=== PATIENT | female | born 1955 | race Caucasian/White ===

== ENCOUNTER 2019-10-09 10:43 | Outpatient (CLI) | payer OTHER ==
--- NOTE | 2019-10-09 11:14 | RAD ---
Abdomen 2 views HISTORY: Abdominal pain. FINDINGS: Large amount of hyperdense stool throughout the colon and rectum. No differential air-fluid levels or evidence of free subdiaphragmatic gas. Phleboliths project over the pelvis. There are mild degenerative changes of the lumbar spine and hips. IMPRESSION: Severe constipation.
== END 2019-10-09 10:44 | disposition home or self-care (01) ==
LOC: BICRAD 10:43
PROVIDERS: ATTEND Physician Assistant Medical
DX: K59.09 Other constipation (principal)
CPT/HCPCS: 74019

== ENCOUNTER 2021-04-23 08:32 | Inpatient (IN) | payer OTHER ==
[2021-04-23 09:00] LABS: #Lymphocytes 0.8 thou/uL (1.20-3.40); #Monocytes 1.5 thou/uL (0.11-0.59); #Neutrophils 12.3 thou/uL (1.40-6.50); %Basophils 0.2 % (0.0-1.0); %Eosinophils 0.3 % (0.0-10.0); %Lymphocytes 5.4 % (21.0-51.0); %Monocytes 10.4 % (0.0-10.0); %Neutrophils 83.7 % (42.0-75.0); Hemoglobin 9.8 g/dL (12.0-16.0); Mean Corpuscular HGB CONC 33.5 g/dL (32.0-36.0); Mean Corpuscular Hemoglobin 31.5 pg (27.0-31.0); Mean Corpuscular Volume 93.9 fL (78.0-98.0); Mean Platelet Volume 7.5 fL (7.4-10.4); Platelet Count 189 thou/uL (130-400); RBC Distribution Width 13.1 % (11.5-14.5); Red Blood Cell (RBC) Count 3.11 mill/uL (4.20-5.40); White Blood Cell (WBC) Count 14.7 thou/uL (4.8-10.8)
[2021-04-23] MEDS ORDERED: Cefepime 2 GM VIAL ONE (09:00)
[2021-04-23] MEDS ORDERED: cloNIDine 0.1 MG TAB ONE (09:00)
[2021-04-23 09:20] LABS: Bacteria/HPF None Seen HPF (None Seen); Bilirubin Negative (Negative); Blood, Urine 1+ (Negative); Clarity Clear (Clear); Glucose, Urine (Dipstick) Normal (Negative); Ketone, Urine Trace mg/dL (Negative); Leukocyte Negative Leu/uL (Negative); Nitrite Negative (Negative); Protein, Urine (Dipstick) 50 mg/dL (Neg-Trace); Specific Gravity, Urine 1.019 (1.002-1.036); Squamous Epithelial 0-3 HPF (0-3); Urobilinogen Normal mg/dL (Less than 2); WBC/HPF 0-3 HPF (0-3)
[2021-04-23 09:21] LABS: ALT (SGPT) 16 U/L (8-55); AST (SGOT) 20 U/L (5-34); Albumin 2.9 g/dL (3.4-4.8); Alkaline Phosphatase 92 U/L (40-110); Anion Gap 11 mmol/L (10-20); BUN (Urea Nitrogen) 16 mg/dL (9.8-20.1); Bilirubin, Total 0.7 mg/dL (0.2-1.2); Calc. Creatinine Clearance 0 mL/min (70-130); Calcium 8.3 mg/dL (7.8-10.44); Carbon Dioxide 15 mmol/L (23-31); Chloride 113 mmol/L (98-107); Globulin 2.7 g/dL (2.4-3.5); Glucose 85 mg/dL (80-115); Potassium 3.2 mmol/L (3.5-5.1); Protein, Total 5.6 g/dL (5.8-8.1); Sodium 136 mmol/L (136-145)
[2021-04-23] MEDS ORDERED: Ondansetron ODT 4 MG TAB SL PRN (10:00)
[2021-04-23] MEDS ORDERED: Acetaminophen 325 MG TAB PO PRN (10:00)
[2021-04-23] MEDS ORDERED: Ondansetron PF 4 MG/2 ML Vial IVP PRN (10:00)
[2021-04-23] MEDS ORDERED: Vancomycin 1 GM/200 ML BAG ONE (10:01)
[2021-04-23 13:34] LABS: SARS-CoV-2 NAA Rapid Test DETECTED (NotDetected)
[2021-04-23] MEDS ORDERED: NS 0.9% w/ 40 MEQ KCL 1,000 ML IV SCH (16:00)
[2021-04-23] MEDS ORDERED: Prevnar 13-Val Conj/PF 0.5 ML SYRINGE IM ONE (16:30)
[2021-04-23] MEDS: Acetaminophen 650 MG Suppository PR PRN (20:00)
[2021-04-23] MEDS ORDERED: Sodium Chloride 0.9% 500 ML IV SCH (20:00)
[2021-04-23] MEDS: Cefepime 2 GM in Sodium Chloride 0.9% 100 ML IVPB SCH (20:57)
[2021-04-23] MEDS: Sodium Chloride 0.9% 1,000 ML IV SCH (21:34)
[2021-04-23] MEDS ORDERED: Sodium Chloride 0.9% 1,000 ML IV SCH (22:00)
[2021-04-24] MEDS: DOPamine 400 MG/D5W 250 ML 250 ML IVPB SCH ×2 (00:41→20:32)
[2021-04-24] MEDS ORDERED: Sodium Chloride 0.9% 1,000 ML IV SCH (02:00)
[2021-04-24 04:11] LABS: #Eosinphils 0.1 thou/uL (0.0-0.7); #Lymphocytes 0.8 thou/uL (1.20-3.40); #Monocytes 0.9 thou/uL (0.11-0.59); #Neutrophils 11.6 thou/uL (1.40-6.50); %Basophils 0.3 % (0.0-1.0); %Eosinophils 0.9 % (0.0-10.0); %Lymphocytes 6.1 % (21.0-51.0); %Monocytes 6.3 % (0.0-10.0); %Neutrophils 86.4 % (42.0-75.0); Hemoglobin 9.2 g/dL (12.0-16.0); Mean Corpuscular HGB CONC 33.3 g/dL (32.0-36.0); Mean Corpuscular Hemoglobin 31.8 pg (27.0-31.0); Mean Corpuscular Volume 95.6 fL (78.0-98.0); Mean Platelet Volume 7.4 fL (7.4-10.4); Platelet Count 149 thou/uL (130-400); RBC Distribution Width 13.1 % (11.5-14.5); Red Blood Cell (RBC) Count 2.88 mill/uL (4.20-5.40); White Blood Cell (WBC) Count 13.5 thou/uL (4.8-10.8)
[2021-04-24 04:28] LABS: Anion Gap 12 mmol/L (10-20); BUN (Urea Nitrogen) 14 mg/dL (9.8-20.1); Calc. Creatinine Clearance 69 mL/min (70-130); Calcium 7.7 mg/dL (7.8-10.44); Carbon Dioxide 10 mmol/L (23-31); Chloride 120 mmol/L (98-107); Glucose 83 mg/dL (80-115); Potassium 3.5 mmol/L (3.5-5.1); Sodium 138 mmol/L (136-145)
[2021-04-24] MEDS: Enoxaparin Sodium 40 MG/0.4 ML SYRINGE SC SCH (09:37)
[2021-04-24] MEDS: Cefepime 2 GM in Sodium Chloride 0.9% 100 ML IVPB SCH ×2 (09:37→20:39)
[2021-04-24] MEDS: Sodium Chloride 0.9% 1,000 ML IV SCH ×2 (09:37→21:53)
[2021-04-24] MEDS: Vancomycin 1 GM in Premix Bag 1 BAG IVPB SCH (09:40)
[2021-04-24] MEDS ORDERED: Potassium Chloride 40 MEQ in Sodium Chloride 0.9% 250 ML 250 ML IVPB SCH (11:45)
[2021-04-24] MEDS: Ondansetron PF 4 MG/2 ML Vial IVP PRN (13:51)
[2021-04-25 05:09] LABS: #Eosinphils 0.3 thou/uL (0.0-0.7); #Lymphocytes 0.6 thou/uL (1.20-3.40); #Monocytes 0.6 thou/uL (0.11-0.59); %Basophils 0.3 % (0.0-1.0); %Eosinophils 3.3 % (0.0-10.0); %Lymphocytes 6.3 % (21.0-51.0); %Monocytes 6.5 % (0.0-10.0); %Neutrophils 83.7 % (42.0-75.0); Hemoglobin 9.3 g/dL (12.0-16.0); Mean Corpuscular HGB CONC 32.6 g/dL (32.0-36.0); Mean Corpuscular Hemoglobin 30.8 pg (27.0-31.0); Mean Corpuscular Volume 94.4 fL (78.0-98.0); Mean Platelet Volume 7.4 fL (7.4-10.4); Platelet Count 170 thou/uL (130-400); RBC Distribution Width 13.1 % (11.5-14.5); White Blood Cell (WBC) Count 9.6 thou/uL (4.8-10.8)
[2021-04-25 05:34] LABS: Anion Gap 11 mmol/L (10-20); BUN (Urea Nitrogen) 12 mg/dL (9.8-20.1); Calc. Creatinine Clearance 78 mL/min (70-130); Calcium 8.1 mg/dL (7.8-10.44); Carbon Dioxide 12 mmol/L (23-31); Chloride 114 mmol/L (98-107); Glucose 81 mg/dL (80-115); Potassium 3.3 mmol/L (3.5-5.1); Sodium 134 mmol/L (136-145)
[2021-04-25] MEDS: Sodium Chloride 0.9% 1,000 ML IV SCH (05:57)
[2021-04-25] MEDS: Enoxaparin Sodium 40 MG/0.4 ML SYRINGE SC SCH (09:15)
[2021-04-25] MEDS: Cefepime 2 GM in Sodium Chloride 0.9% 100 ML IVPB SCH ×2 (09:16→21:08)
[2021-04-25] MEDS: Vancomycin 1 GM in Premix Bag 1 BAG IVPB SCH (09:17)
[2021-04-25 10:11] LABS: Vancomycin, Trough 8.6 ug/mL
[2021-04-25] MEDS ORDERED: Artificial Tear Sol 15 ML BOT EA EYE PRN (10:56)
[2021-04-25] MEDS ORDERED: Potassium Chloride 40 MEQ in Sodium Chloride 0.9% 250 ML 250 ML IVPB SCH (11:45)
[2021-04-25] MEDS ORDERED: Potassium Chloride 40 MEQ in Premix Bag 1 BAG IVPB SCH (12:00)
[2021-04-25] MEDS: DOPamine 400 MG/D5W 250 ML 250 ML IVPB SCH (17:15)
[2021-04-25] MEDS: Vancomycin HCl 750 MG in Sodium Chloride 0.9% 250 ML 250 ML IVPB SCH (21:38)
[2021-04-26] MEDS: Sodium Chloride 0.9% 1,000 ML IV SCH ×2 (01:20→11:20)
[2021-04-26 04:44] LABS: Anion Gap 12 mmol/L (10-20); BUN (Urea Nitrogen) 11 mg/dL (9.8-20.1); Calc. Creatinine Clearance 86 mL/min (70-130); Carbon Dioxide 11 mmol/L (23-31); Chloride 113 mmol/L (98-107); Glucose 90 mg/dL (80-115); Potassium 4.4 mmol/L (3.5-5.1); Sodium 132 mmol/L (136-145)
[2021-04-26] MEDS ORDERED: Famotidine 20 MG TAB PO PRN (07:40)
[2021-04-26] MEDS ORDERED: Levothyroxine Sodium 88 MCG TAB PO SCH (07:45)
[2021-04-26] MEDS: Cefepime 2 GM in Sodium Chloride 0.9% 100 ML IVPB SCH ×2 (08:49→20:59)
[2021-04-26] MEDS: Dronabinol 2.5 MG CAP PO SCH ×2 (08:49→21:00)
[2021-04-26] MEDS: Enoxaparin Sodium 40 MG/0.4 ML SYRINGE SC SCH (08:49)
[2021-04-26] MEDS: Zinc Sulfate 220 MG CAP PO SCH (08:50)
[2021-04-26] MEDS: Vit A,C & E/Lutein/Minerals Tablet PO SCH ×2 (08:50→21:00)
[2021-04-26] MEDS ORDERED: Non-Formulary Item 1 EACH (Linaclotide [Linzess] 290 MCG Capsule) PO SCH (09:00)
[2021-04-26 09:51] LABS: #Eosinphils 0.3 thou/uL (0.0-0.7); #Lymphocytes 0.7 thou/uL (1.20-3.40); #Monocytes 0.7 thou/uL (0.11-0.59); #Neutrophils 5.6 thou/uL (1.40-6.50); %Basophils 0.6 % (0.0-1.0); %Eosinophils 4.4 % (0.0-10.0); %Lymphocytes 9.4 % (21.0-51.0); %Monocytes 9.2 % (0.0-10.0); %Neutrophils 76.4 % (42.0-75.0); Mean Corpuscular HGB CONC 33.2 g/dL (32.0-36.0); Mean Corpuscular Hemoglobin 31.3 pg (27.0-31.0); Mean Corpuscular Volume 94.1 fL (78.0-98.0); Platelet Count 174 thou/uL (130-400); White Blood Cell (WBC) Count 7.3 thou/uL (4.8-10.8)
[2021-04-26 10:30] LABS: Free T4 (Free Thyroxine) 0.92 ng/dL (0.70-1.48)
[2021-04-26] MEDS: Vancomycin HCl 750 MG in Sodium Chloride 0.9% 250 ML 250 ML IVPB SCH ×2 (11:18→23:16)
[2021-04-26] MEDS: DOPamine 400 MG/D5W 250 ML 250 ML IVPB SCH (14:30)
[2021-04-26 16:06] LABS: Strep pneumo Urine Ag NEGATIVE (NEGATIVE)
[2021-04-26 16:07] LABS: Legionella Urinary Ag Negative (Negative)
[2021-04-26] MEDS ORDERED: Lactated Ringer's 500 ML IV SCH (20:00)
[2021-04-26] MEDS: Lactated Ringer's 1,000 ML IV SCH (20:58)
[2021-04-26] MEDS: Mirtazapine 15 MG TAB PO SCH (21:00)
[2021-04-27 04:32] LABS: #Basophils 0.1 thou/uL (0.0-0.2); #Eosinphils 0.3 thou/uL (0.0-0.7); #Lymphocytes 0.8 thou/uL (1.20-3.40); #Monocytes 0.8 thou/uL (0.11-0.59); #Neutrophils 6.3 thou/uL (1.40-6.50); %Basophils 0.6 % (0.0-1.0); %Eosinophils 4.2 % (0.0-10.0); %Lymphocytes 9.1 % (21.0-51.0); %Monocytes 9.8 % (0.0-10.0); %Neutrophils 76.3 % (42.0-75.0); Hemoglobin 10.5 g/dL (12.0-16.0); Mean Corpuscular HGB CONC 33.6 g/dL (32.0-36.0); Mean Corpuscular Hemoglobin 31.5 pg (27.0-31.0); Mean Corpuscular Volume 93.6 fL (78.0-98.0); Mean Platelet Volume 6.9 fL (7.4-10.4); Platelet Count 182 thou/uL (130-400); RBC Distribution Width 13.1 % (11.5-14.5); Red Blood Cell (RBC) Count 3.32 mill/uL (4.20-5.40); White Blood Cell (WBC) Count 8.3 thou/uL (4.8-10.8)
[2021-04-27 04:53] LABS: Anion Gap 11 mmol/L (10-20); BUN (Urea Nitrogen) 9 mg/dL (9.8-20.1); Calc. Creatinine Clearance 86 mL/min (70-130); Calcium 8.1 mg/dL (7.8-10.44); Carbon Dioxide 14 mmol/L (23-31); Chloride 110 mmol/L (98-107); Glucose 97 mg/dL (80-115); Sodium 132 mmol/L (136-145)
[2021-04-27] MEDS: Levothyroxine Sodium 88 MCG TAB PO SCH (07:23)
[2021-04-27] MEDS ORDERED: Fludrocortisone Acetate 0.1 MG TAB PO SCH (09:00)
[2021-04-27 09:10] LABS: Vancomycin, Trough 23.7 ug/mL
[2021-04-27] MEDS ORDERED: Potassium Chloride 20 MEQ TAB PO SCH (10:00)
[2021-04-27] MEDS: Cefepime 2 GM in Sodium Chloride 0.9% 100 ML IVPB SCH ×2 (10:23→20:53)
[2021-04-27] MEDS: Vit A,C & E/Lutein/Minerals Tablet PO SCH (10:24)
[2021-04-27] MEDS: Vancomycin HCl 750 MG in Sodium Chloride 0.9% 250 ML 250 ML IVPB SCH ×2 (10:24→22:58)
[2021-04-27] MEDS: Enoxaparin Sodium 40 MG/0.4 ML SYRINGE SC SCH (10:24)
[2021-04-27] MEDS: Zinc Sulfate 220 MG CAP PO SCH (10:24)
[2021-04-27] MEDS: Dronabinol 2.5 MG CAP PO SCH ×3 (10:24→23:18)
[2021-04-27] MEDS: Lactated Ringer's 1,000 ML IV SCH (10:25)
[2021-04-27] MEDS ORDERED: Pancrelipase DR 12,000 1 CAP FS PRN (11:45)
[2021-04-27] MEDS ORDERED: Sodium Bicarbonate Tab 325 MG TAB PER TUBE PRN (11:45)
[2021-04-27] MEDS ORDERED: Sodium Chloride 0.9% (PF) 10 ML VIAL FS PRN (12:15)
[2021-04-27] MEDS ORDERED: DOPamine 400 MG/D5W 250 ML 250 ML IVPB SCH (12:30)
[2021-04-27] MEDS: Dextrose 5%-Lactated Ringers 1,000 ML IV SCH (14:30)
[2021-04-27] MEDS: Dexamethasone 4 mg/ml Vial SLOW IVP SCH ×2 (17:51→20:53)
[2021-04-27 18:43] LABS: CSF Source CSF; Clarity Clear (Clear); Tube # 4
[2021-04-27] MEDS ORDERED: Potassium Chloride 40 MEQ in Sodium Chloride 0.9% 250 ML 250 ML IVPB SCH (19:30)
[2021-04-27] MEDS: Mirtazapine 15 MG TAB PO SCH (23:18)
[2021-04-28] MEDS: Levothyroxine Sodium 88 MCG TAB PO SCH (01:15)
[2021-04-28] MEDS: Dexamethasone 4 mg/ml Vial SLOW IVP SCH ×6 (01:20→21:51)
[2021-04-28 05:05] LABS: #Lymphocytes 0.5 thou/uL (1.20-3.40); #Monocytes 0.1 thou/uL (0.11-0.59); #Neutrophils 7.1 thou/uL (1.40-6.50); %Eosinophils 0.5 % (0.0-10.0); %Lymphocytes 6.6 % (21.0-51.0); %Monocytes 1.3 % (0.0-10.0); %Neutrophils 91.6 % (42.0-75.0); Hemoglobin 9.9 g/dL (12.0-16.0); Mean Corpuscular HGB CONC 32.8 g/dL (32.0-36.0); Mean Corpuscular Hemoglobin 30.6 pg (27.0-31.0); Mean Corpuscular Volume 93.3 fL (78.0-98.0); Mean Platelet Volume 8.3 fL (7.4-10.4); Platelet Count 186 thou/uL (130-400); RBC Distribution Width 13.2 % (11.5-14.5); Red Blood Cell (RBC) Count 3.23 mill/uL (4.20-5.40); White Blood Cell (WBC) Count 7.8 thou/uL (4.8-10.8)
[2021-04-28 05:29] LABS: ALT (SGPT) 16 U/L (8-55); AST (SGOT) 14 U/L (5-34); Albumin 2.6 g/dL (3.4-4.8); Alkaline Phosphatase 101 U/L (40-110); Anion Gap 11 mmol/L (10-20); BUN (Urea Nitrogen) 13 mg/dL (9.8-20.1); Bilirubin, Total 0.4 mg/dL (0.2-1.2); Calc. Creatinine Clearance 76 mL/min (70-130); Calcium 8.3 mg/dL (7.8-10.44); Carbon Dioxide 13 mmol/L (23-31); Chloride 113 mmol/L (98-107); Globulin 2.9 g/dL (2.4-3.5); Glucose 228 mg/dL (80-115); Magnesium 1.9 mg/dL (1.6-2.6); Potassium 3.6 mmol/L (3.5-5.1); Protein, Total 5.5 g/dL (5.8-8.1); Sodium 133 mmol/L (136-145)
[2021-04-28] MEDS: Enoxaparin Sodium 40 MG/0.4 ML SYRINGE SC SCH (08:57)
[2021-04-28] MEDS: Pantoprazole 40 MG VIAL IVP SCH (08:57)
[2021-04-28] MEDS: Dronabinol 2.5 MG CAP PO SCH ×2 (08:58→21:51)
[2021-04-28] MEDS: Cefepime 2 GM in Sodium Chloride 0.9% 100 ML IVPB SCH ×2 (09:00→21:51)
[2021-04-28] MEDS: Vancomycin HCl 750 MG in Sodium Chloride 0.9% 250 ML 250 ML IVPB SCH (09:01)
[2021-04-28 09:41] LABS: Vancomycin, Trough 30.5 ug/mL
[2021-04-28] MEDS: Dextrose 5%-Lactated Ringers 1,000 ML IV SCH (12:03)
[2021-04-28 21:13] LABS: Vancomycin, Random 23.5 ug/mL (See Comment)
[2021-04-28] MEDS: Mirtazapine 15 MG TAB PO SCH (21:51)
[2021-04-28] MEDS ORDERED: Vancomycin HCl 500 MG in Sodium Chloride 0.9% 100 ML IVPB SCH (22:00)
[2021-04-29] MEDS: Dexamethasone 4 mg/ml Vial SLOW IVP SCH ×5 (02:11→16:55)
[2021-04-29] MEDS: Levothyroxine Sodium 88 MCG TAB PO SCH (04:53)
[2021-04-29 05:44] LABS: ALT (SGPT) 28 U/L (8-55); AST (SGOT) 32 U/L (5-34); Albumin 2.6 g/dL (3.4-4.8); Alkaline Phosphatase 98 U/L (40-110); Anion Gap 12 mmol/L (10-20); BUN (Urea Nitrogen) 21 mg/dL (9.8-20.1); Bilirubin, Total 0.2 mg/dL (0.2-1.2); Calc. Creatinine Clearance 77 mL/min (70-130); Calcium 8.8 mg/dL (7.8-10.44); Carbon Dioxide 12 mmol/L (23-31); Chloride 114 mmol/L (98-107); Globulin 2.8 g/dL (2.4-3.5); Glucose 131 mg/dL (80-115); Potassium 3.7 mmol/L (3.5-5.1); Protein, Total 5.4 g/dL (5.8-8.1); Sodium 134 mmol/L (136-145)
[2021-04-29] MEDS: Dronabinol 2.5 MG CAP PO SCH ×2 (09:37→21:20)
[2021-04-29] MEDS: Enoxaparin Sodium 40 MG/0.4 ML SYRINGE SC SCH (09:40)
[2021-04-29] MEDS: Cefepime 2 GM in Sodium Chloride 0.9% 100 ML IVPB SCH ×2 (09:40→21:20)
[2021-04-29] MEDS: Pantoprazole 40 MG VIAL IVP SCH (09:41)
[2021-04-29 11:46] LABS: Vancomycin, Random 18.4 ug/mL (See Comment)
[2021-04-29] MEDS: Vancomycin HCl 750 MG in Sodium Chloride 0.9% 250 ML 250 ML IVPB SCH (14:29)
[2021-04-29 19:23] LABS: SARS-CoV-2 NAA Rapid Test Not Detected (NotDetected)
[2021-04-29] MEDS: Mirtazapine 15 MG TAB PO SCH (21:20)
[2021-04-29 22:12] LABS: QuantiFERON-TB Gold Plus Negative (Negative)
[2021-04-30] MEDS: Levothyroxine Sodium 88 MCG TAB PO SCH (04:54)
[2021-04-30 07:26] LABS: ALT (SGPT) 73 U/L (8-55); AST (SGOT) 65 U/L (5-34); Albumin 2.5 g/dL (3.4-4.8); Alkaline Phosphatase 96 U/L (40-110); Anion Gap 9 mmol/L (10-20); BUN (Urea Nitrogen) 23 mg/dL (9.8-20.1); Bilirubin, Total 0.3 mg/dL (0.2-1.2); Calc. Creatinine Clearance 80 mL/min (70-130); Calcium 8.8 mg/dL (7.8-10.44); Carbon Dioxide 16 mmol/L (23-31); Chloride 114 mmol/L (98-107); Globulin 2.8 g/dL (2.4-3.5); Glucose 98 mg/dL (80-115); Potassium 3.8 mmol/L (3.5-5.1); Protein, Total 5.3 g/dL (5.8-8.1); Sodium 135 mmol/L (136-145)
[2021-04-30] MEDS: Cefepime 2 GM in Sodium Chloride 0.9% 100 ML IVPB SCH ×2 (08:25→21:57)
[2021-04-30] MEDS: Enoxaparin Sodium 40 MG/0.4 ML SYRINGE SC SCH (08:26)
[2021-04-30] MEDS: Pantoprazole 40 MG VIAL IVP SCH (08:27)
[2021-04-30] MEDS: Dronabinol 2.5 MG CAP PO SCH ×3 (10:44→22:10)
[2021-04-30] MEDS: Acetaminophen 650 MG Suppository PR PRN (11:53)
[2021-04-30] MEDS: Vancomycin HCl 750 MG in Sodium Chloride 0.9% 250 ML 250 ML IVPB SCH (13:04)
[2021-04-30 13:54] VITALS: BMI 24.7
[2021-04-30] MEDS: Mirtazapine 15 MG TAB PO SCH (21:57)
[2021-05-01 04:43] LABS: Hemoglobin 9.3 g/dL (12.0-16.0); Mean Corpuscular HGB CONC 33.9 g/dL (32.0-36.0); Mean Corpuscular Hemoglobin 31.4 pg (27.0-31.0); Mean Corpuscular Volume 92.8 fL (78.0-98.0); Mean Platelet Volume 7.8 fL (7.4-10.4); Platelet Count 204 thou/uL (130-400); RBC Distribution Width 13.6 % (11.5-14.5); Red Blood Cell (RBC) Count 2.95 mill/uL (4.20-5.40); White Blood Cell (WBC) Count 5.1 thou/uL (4.8-10.8)
[2021-05-01 05:00] LABS: ALT (SGPT) 83 U/L (8-55); AST (SGOT) 57 U/L (5-34); Albumin 2.5 g/dL (3.4-4.8); Alkaline Phosphatase 93 U/L (40-110); Anion Gap 8 mmol/L (10-20); BUN (Urea Nitrogen) 22 mg/dL (9.8-20.1); Bilirubin, Total 0.4 mg/dL (0.2-1.2); Calc. Creatinine Clearance 83 mL/min (70-130); Calcium 8.5 mg/dL (7.8-10.44); Carbon Dioxide 19 mmol/L (23-31); Chloride 113 mmol/L (98-107); Globulin 2.6 g/dL (2.4-3.5); Glucose 84 mg/dL (80-115); Potassium 3.5 mmol/L (3.5-5.1); Protein, Total 5.1 g/dL (5.8-8.1); Sodium 136 mmol/L (136-145)
[2021-05-01] MEDS: Levothyroxine Sodium 88 MCG TAB PO SCH (05:25)
[2021-05-01 06:39] LABS: Band 9 % (5-11); Eosinophils 1 % (0-10); Lymphocytes 30 % (21-51); MDiff Complete? YES; Monocytes 15 % (0-10); Myelocyte 5 % (0-0); Neutrophil 40 % (42-75)
[2021-05-01] MEDS ORDERED: Midazolam HCl 2 mg/2 ml Vial ONE (08:55)
[2021-05-01] MEDS ORDERED: Ketamine 50 MG/ML (10ML VIAL) ONE (08:55)
[2021-05-01] MEDS ORDERED: Ondansetron HCl/PF 4 MG/2 ML Vial IVP PRN (09:08)
[2021-05-01] MEDS ORDERED: Promethazine HCl 25 MG/ML VIAL IVPB PRN (09:08)
[2021-05-01] MEDS ORDERED: Promethazine HCl 25 MG/ML VIAL IM PRN (09:08)
[2021-05-01] MEDS: Pantoprazole 40 MG VIAL IVP SCH (10:02)
[2021-05-01] MEDS: Cefepime 2 GM in Sodium Chloride 0.9% 100 ML IVPB SCH (10:04)
[2021-05-01] MEDS: Dronabinol 2.5 MG CAP PO SCH ×2 (10:05→20:47)
[2021-05-01 12:37] LABS: Vancomycin, Trough 15.3 ug/mL
[2021-05-01] MEDS ORDERED: Vancomycin 1 GM in Premix Bag 1 BAG IVPB SCH (13:00)
[2021-05-01] MEDS: Acetaminophen 650 MG Suppository PR PRN (13:53)
[2021-05-01] MEDS ORDERED: Famotidine/PF 20 mg/2ml Vial ONE (14:36)
[2021-05-01] MEDS: Mirtazapine 15 MG TAB PO SCH (20:47)
[2021-05-02] MEDS: Levothyroxine Sodium 88 MCG TAB PO SCH (04:44)
[2021-05-02 07:37] LABS: Hemoglobin 9.2 g/dL (12.0-16.0); Mean Corpuscular HGB CONC 33.2 g/dL (32.0-36.0); Mean Corpuscular Hemoglobin 31.1 pg (27.0-31.0); Mean Corpuscular Volume 93.7 fL (78.0-98.0); Mean Platelet Volume 7.9 fL (7.4-10.4); Platelet Count 202 thou/uL (130-400); RBC Distribution Width 13.9 % (11.5-14.5); Red Blood Cell (RBC) Count 2.96 mill/uL (4.20-5.40); White Blood Cell (WBC) Count 9.2 thou/uL (4.8-10.8)
[2021-05-02 07:45] LABS: ALT (SGPT) 78 U/L (8-55); AST (SGOT) 41 U/L (5-34); Albumin 2.4 g/dL (3.4-4.8); Alkaline Phosphatase 92 U/L (40-110); Anion Gap 6 mmol/L (10-20); BUN (Urea Nitrogen) 18 mg/dL (9.8-20.1); Bilirubin, Total 0.4 mg/dL (0.2-1.2); Calc. Creatinine Clearance 84 mL/min (70-130); Calcium 8.3 mg/dL (7.8-10.44); Carbon Dioxide 22 mmol/L (23-31); Chloride 109 mmol/L (98-107); Globulin 2.6 g/dL (2.4-3.5); Glucose 85 mg/dL (80-115); Potassium 4.3 mmol/L (3.5-5.1); Sodium 133 mmol/L (136-145)
[2021-05-02] MEDS: Pantoprazole 40 MG VIAL IVP SCH (08:21)
[2021-05-02] MEDS: Enoxaparin Sodium 40 MG/0.4 ML SYRINGE SC SCH (08:21)
[2021-05-02] MEDS: Dronabinol 2.5 MG CAP PO SCH (08:22)
[2021-05-02 09:44] LABS: Band 19 % (5-11); Eosinophils 3 % (0-10); Lymphocytes 12 % (21-51); MDiff Complete? YES; Metamyelocyte 2 % (0-0); Monocytes 6 % (0-10); Neutrophil 58 % (42-75)
[2021-05-02] MEDS: Acetaminophen 325 MG TAB PO PRN (20:37)
[2021-05-03] MEDS: Levothyroxine Sodium 88 MCG TAB PO SCH (05:12)
[2021-05-03 06:55] LABS: #Eosinphils 0.4 thou/uL (0.0-0.7); #Lymphocytes 1.1 thou/uL (1.20-3.40); #Neutrophils 9.4 thou/uL (1.40-6.50); %Basophils 0.2 % (0.0-1.0); %Eosinophils 3.2 % (0.0-10.0); %Lymphocytes 9.6 % (21.0-51.0); %Monocytes 8.3 % (0.0-10.0); %Neutrophils 78.8 % (42.0-75.0); Hemoglobin 9.1 g/dL (12.0-16.0); Mean Corpuscular HGB CONC 33.5 g/dL (32.0-36.0); Mean Corpuscular Hemoglobin 31.4 pg (27.0-31.0); Mean Corpuscular Volume 93.7 fL (78.0-98.0); Platelet Count 180 thou/uL (130-400); RBC Distribution Width 13.9 % (11.5-14.5); Red Blood Cell (RBC) Count 2.91 mill/uL (4.20-5.40); White Blood Cell (WBC) Count 11.9 thou/uL (4.8-10.8)
[2021-05-03 07:19] LABS: ALT (SGPT) 61 U/L (8-55); AST (SGOT) 26 U/L (5-34); Albumin 2.4 g/dL (3.4-4.8); Alkaline Phosphatase 84 U/L (40-110); Anion Gap 7 mmol/L (10-20); BUN (Urea Nitrogen) 15 mg/dL (9.8-20.1); Bilirubin, Total 0.3 mg/dL (0.2-1.2); Calc. Creatinine Clearance 92 mL/min (70-130); Calcium 7.9 mg/dL (7.8-10.44); Carbon Dioxide 24 mmol/L (23-31); Chloride 105 mmol/L (98-107); Globulin 2.4 g/dL (2.4-3.5); Glucose 97 mg/dL (80-115); Potassium 3.7 mmol/L (3.5-5.1); Protein, Total 4.8 g/dL (5.8-8.1); Sodium 132 mmol/L (136-145)
[2021-05-03] MEDS: Pantoprazole 40 MG VIAL IVP SCH (08:21)
[2021-05-03] MEDS: Enoxaparin Sodium 40 MG/0.4 ML SYRINGE SC SCH (08:22)
[2021-05-03] MEDS: Folic Acid 1 MG TAB PER TUBE SCH (08:22)
[2021-05-03] MEDS: Acetaminophen 325 MG TAB PO PRN (11:56)
[2021-05-04] MEDS: Levothyroxine Sodium 88 MCG TAB PO SCH (05:18)
[2021-05-04] MEDS: Enoxaparin Sodium 40 MG/0.4 ML SYRINGE SC SCH (09:34)
[2021-05-04] MEDS: Pantoprazole 40 MG VIAL IVP SCH (09:34)
[2021-05-04] MEDS: Folic Acid 1 MG TAB PER TUBE SCH (09:34)
[2021-05-04] MEDS ORDERED: Sodium Chloride 0.9% 1,000 ML IV SCH (12:15)
[2021-05-04] MEDS: NS 0.9% w/ 20 MEQ KCL 1,000 ML/1,000 ML BAG IV SCH ×2 (17:38→23:50)
[2021-05-05] MEDS: Levothyroxine Sodium 88 MCG TAB PO SCH (06:20)
[2021-05-05 07:23] LABS: Anion Gap 11 mmol/L (10-20); BUN (Urea Nitrogen) 13 mg/dL (9.8-20.1); Calc. Creatinine Clearance 86 mL/min (70-130); Calcium 7.9 mg/dL (7.8-10.44); Carbon Dioxide 25 mmol/L (23-31); Chloride 102 mmol/L (98-107); Glucose 90 mg/dL (80-115); Potassium 4.7 mmol/L (3.5-5.1); Sodium 133 mmol/L (136-145)
[2021-05-05 07:25] LABS: Hemoglobin 8.8 g/dL (12.0-16.0); Mean Corpuscular HGB CONC 32.7 g/dL (32.0-36.0); Mean Corpuscular Hemoglobin 31.2 pg (27.0-31.0); Mean Corpuscular Volume 95.3 fL (78.0-98.0); Mean Platelet Volume 8.1 fL (7.4-10.4); Platelet Count 195 thou/uL (130-400); RBC Distribution Width 13.8 % (11.5-14.5); Red Blood Cell (RBC) Count 2.81 mill/uL (4.20-5.40); White Blood Cell (WBC) Count 8.2 thou/uL (4.8-10.8)
[2021-05-05] MEDS: Pantoprazole 40 MG VIAL IVP SCH (07:58)
[2021-05-05] MEDS: Enoxaparin Sodium 40 MG/0.4 ML SYRINGE SC SCH (07:58)
[2021-05-05] MEDS: Folic Acid 1 MG TAB PER TUBE SCH (07:59)
[2021-05-05 08:21] LABS: Band 10 % (5-11); Eosinophils 6 % (0-10); Lymphocytes 15 % (21-51); MDiff Complete? YES; Metamyelocyte 2 % (0-0); Monocytes 12 % (0-10); Neutrophil 54 % (42-75); Platelet Morphology Comment Appears Adequate; RBC Morphology Normal; Reactive Lymphocytes 1 % (0-10)
[2021-05-05 15:26] LABS: Reference Lab Name LABCORP
[2021-05-05] MEDS: Acetaminophen 325 MG TAB PO PRN ×2 (16:01→21:16)
[2021-05-05] MEDS: NS 0.9% w/ 20 MEQ KCL 1,000 ML/1,000 ML BAG IV SCH (20:58)
[2021-05-05] MEDS: Midodrine HCl 5 MG TAB PER TUBE SCH (20:58)
[2021-05-06] MEDS: NS 0.9% w/ 20 MEQ KCL 1,000 ML/1,000 ML BAG IV SCH ×2 (01:28→20:44)
[2021-05-06] MEDS: Levothyroxine Sodium 88 MCG TAB PO SCH (05:43)
[2021-05-06] MEDS: Pantoprazole 40 MG VIAL IVP SCH (08:14)
[2021-05-06] MEDS: Folic Acid 1 MG TAB PER TUBE SCH (08:14)
[2021-05-06] MEDS: Midodrine HCl 5 MG TAB PER TUBE SCH ×3 (08:14→20:43)
[2021-05-06] MEDS: Enoxaparin Sodium 40 MG/0.4 ML SYRINGE SC SCH (08:14)
[2021-05-06] MEDS: Acetaminophen 325 MG TAB PO PRN (20:43)
[2021-05-06] MEDS: Ondansetron PF 4 MG/2 ML Vial IVP PRN (23:38)
[2021-05-07] MEDS: NS 0.9% w/ 20 MEQ KCL 1,000 ML/1,000 ML BAG IV SCH (03:30)
[2021-05-07] MEDS: Levothyroxine Sodium 88 MCG TAB PO SCH (05:24)
[2021-05-07] MEDS: Folic Acid 1 MG TAB PER TUBE SCH (08:37)
[2021-05-07] MEDS: Pantoprazole 40 MG VIAL IVP SCH (08:37)
[2021-05-07] MEDS: Enoxaparin Sodium 40 MG/0.4 ML SYRINGE SC SCH (08:37)
[2021-05-07] MEDS: Midodrine HCl 5 MG TAB PER TUBE SCH ×3 (08:37→21:41)
[2021-05-07 14:25] LABS: Anion Gap 6 mmol/L (10-20); BUN (Urea Nitrogen) 15 mg/dL (9.8-20.1); Calc. Creatinine Clearance 79 mL/min (70-130); Calcium 8.3 mg/dL (7.8-10.44); Carbon Dioxide 29 mmol/L (23-31); Chloride 103 mmol/L (98-107); Glucose 71 mg/dL (80-115); Potassium 4.5 mmol/L (3.5-5.1); Sodium 133 mmol/L (136-145)
[2021-05-07] MEDS ORDERED: Midodrine HCl 5 MG TAB PER TUBE SCH (17:45)
[2021-05-07] MEDS: hydrOXYzine 25 MG TAB PO PRN (22:31)
[2021-05-08] MEDS: Levothyroxine Sodium 88 MCG TAB PO SCH (05:36)
[2021-05-08] MEDS: Enoxaparin Sodium 40 MG/0.4 ML SYRINGE SC SCH (09:29)
[2021-05-08] MEDS: Midodrine HCl 5 MG TAB PER TUBE SCH ×3 (09:29→21:24)
[2021-05-08] MEDS: Pantoprazole 40 MG VIAL IVP SCH (09:30)
[2021-05-08] MEDS: Folic Acid 1 MG TAB PER TUBE SCH (09:30)
[2021-05-08] MEDS: hydrOXYzine 25 MG TAB PO PRN (13:24)
[2021-05-08 21:22] LABS: SARS-CoV-2 PCR by NAA Indeterminate (NotDetected)
[2021-05-09] MEDS: Levothyroxine Sodium 88 MCG TAB PO SCH (05:58)
[2021-05-09 06:02] LABS: #Basophils 0.1 thou/uL (0.0-0.2); #Eosinphils 0.3 thou/uL (0.0-0.7); #Lymphocytes 1.2 thou/uL (1.20-3.40); #Neutrophils 5.6 thou/uL (1.40-6.50); %Basophils 0.9 % (0.0-1.0); %Eosinophils 4.1 % (0.0-10.0); %Lymphocytes 14.4 % (21.0-51.0); %Monocytes 11.7 % (0.0-10.0); %Neutrophils 68.9 % (42.0-75.0); Mean Corpuscular HGB CONC 32.8 g/dL (32.0-36.0); Mean Corpuscular Hemoglobin 31.1 pg (27.0-31.0); Mean Corpuscular Volume 94.9 fL (78.0-98.0); Mean Platelet Volume 7.1 fL (7.4-10.4); Platelet Count 300 thou/uL (130-400); RBC Distribution Width 13.5 % (11.5-14.5); Red Blood Cell (RBC) Count 2.56 mill/uL (4.20-5.40); White Blood Cell (WBC) Count 8.1 thou/uL (4.8-10.8)
[2021-05-09 06:28] LABS: Anion Gap 9 mmol/L (10-20); BUN (Urea Nitrogen) 18 mg/dL (9.8-20.1); Calc. Creatinine Clearance 78 mL/min (70-130); Carbon Dioxide 28 mmol/L (23-31); Chloride 96 mmol/L (98-107); Glucose 108 mg/dL (80-115); Potassium 4.4 mmol/L (3.5-5.1); Sodium 129 mmol/L (136-145)
[2021-05-09] MEDS: Midodrine HCl 5 MG TAB PER TUBE SCH ×3 (09:12→21:18)
[2021-05-09] MEDS: Pantoprazole 40 MG VIAL IVP SCH (09:12)
[2021-05-09] MEDS: Folic Acid 1 MG TAB PER TUBE SCH (09:12)
[2021-05-09] MEDS: Enoxaparin Sodium 40 MG/0.4 ML SYRINGE SC SCH (09:20)
[2021-05-09] MEDS: Acetaminophen 325 MG TAB PO PRN (22:43)
[2021-05-09] MEDS: hydrOXYzine 25 MG TAB PO PRN (22:44)
[2021-05-10] MEDS: Levothyroxine Sodium 88 MCG TAB PO SCH (06:26)
[2021-05-10] MEDS: Folic Acid 1 MG TAB PER TUBE SCH (09:01)
[2021-05-10] MEDS: Midodrine HCl 5 MG TAB PER TUBE SCH ×3 (09:01→23:25)
[2021-05-10] MEDS: Enoxaparin Sodium 40 MG/0.4 ML SYRINGE SC SCH (09:02)
[2021-05-10] MEDS: Pantoprazole 40 MG VIAL IVP SCH (09:02)
[2021-05-10] MEDS: Lorazepam 2 MG/ML VIAL SLOW IVP PRN (16:11)
[2021-05-11] MEDS: Levothyroxine Sodium 88 MCG TAB PO SCH (05:37)
[2021-05-11] MEDS: Folic Acid 1 MG TAB PER TUBE SCH (08:39)
[2021-05-11] MEDS: Midodrine HCl 5 MG TAB PER TUBE SCH ×3 (08:39→20:10)
[2021-05-11] MEDS: Enoxaparin Sodium 40 MG/0.4 ML SYRINGE SC SCH (08:39)
[2021-05-11] MEDS: Pantoprazole 40 MG VIAL IVP SCH (08:40)
[2021-05-11] MEDS: Lorazepam 2 MG/ML VIAL SLOW IVP PRN (19:29)
[2021-05-12] MEDS: hydrOXYzine 25 MG TAB PO PRN (03:20)
[2021-05-12] MEDS: Levothyroxine Sodium 88 MCG TAB PO SCH (05:24)
[2021-05-12] MEDS: Folic Acid 1 MG TAB PER TUBE SCH (08:53)
[2021-05-12] MEDS: Midodrine HCl 5 MG TAB PER TUBE SCH ×3 (08:53→20:43)
[2021-05-12] MEDS: Enoxaparin Sodium 40 MG/0.4 ML SYRINGE SC SCH (08:53)
[2021-05-12] MEDS: Pantoprazole 40 MG VIAL IVP SCH (08:53)
[2021-05-12 17:21] LABS: #Eosinphils 0.3 thou/uL (0.0-0.7); #Lymphocytes 1.4 thou/uL (1.20-3.40); %Basophils 0.3 % (0.0-1.0); %Eosinophils 3.2 % (0.0-10.0); %Lymphocytes 14.1 % (21.0-51.0); %Neutrophils 72.4 % (42.0-75.0); Hemoglobin 8.7 g/dL (12.0-16.0); Mean Corpuscular HGB CONC 33.1 g/dL (32.0-36.0); Mean Corpuscular Hemoglobin 31.1 pg (27.0-31.0); Mean Corpuscular Volume 94.2 fL (78.0-98.0); Mean Platelet Volume 6.7 fL (7.4-10.4); Platelet Count 417 thou/uL (130-400); RBC Distribution Width 13.5 % (11.5-14.5); White Blood Cell (WBC) Count 9.6 thou/uL (4.8-10.8)
[2021-05-12] MEDS: Bacitracin Zinc Ointment 30 gm TUBE TOP SCH (20:42)
[2021-05-12] MEDS: Lorazepam 2 MG/ML VIAL SLOW IVP PRN (21:58)
[2021-05-13] MEDS: Levothyroxine Sodium 88 MCG TAB PO SCH (05:25)
[2021-05-13] MEDS: Midodrine HCl 5 MG TAB PER TUBE SCH ×3 (09:15→20:47)
[2021-05-13] MEDS: Folic Acid 1 MG TAB PER TUBE SCH (09:16)
[2021-05-13] MEDS: Pantoprazole 40 MG VIAL IVP SCH (09:22)
[2021-05-13] MEDS: Enoxaparin Sodium 40 MG/0.4 ML SYRINGE SC SCH (09:23)
[2021-05-13] MEDS ORDERED: Simethicone Chewable 80 MG TAB PO PRN (12:31)
[2021-05-13] MEDS: Acetaminophen 325 MG TAB PO PRN (12:41)
[2021-05-13] MEDS: hydrOXYzine 25 MG TAB PO PRN (20:47)
[2021-05-13] MEDS: Bacitracin Zinc Ointment 30 gm TUBE TOP SCH (22:24)
[2021-05-14] MEDS ORDERED: Sodium Chloride 0.9% 500 ML IV SCH (08:15)
[2021-05-14] MEDS: Pantoprazole 40 MG VIAL IVP SCH (09:22)
[2021-05-14] MEDS: Midodrine HCl 5 MG TAB PER TUBE SCH ×2 (09:22→15:59)
[2021-05-14] MEDS: Folic Acid 1 MG TAB PER TUBE SCH (09:23)
[2021-05-14] MEDS: Enoxaparin Sodium 40 MG/0.4 ML SYRINGE SC SCH (11:26)
[2021-05-14] MEDS: Levothyroxine Sodium 88 MCG TAB PO SCH (11:28)
[2021-05-14] MEDS: Lorazepam 2 MG/ML VIAL SLOW IVP PRN (15:53)
[2021-05-14] MEDS: hydrOXYzine 25 MG TAB PO PRN (19:54)
[2021-05-14 20:05] VITALS: BP 106/73; TEMP 98.2
== END 2021-05-14 21:11 | DRG 871 ==
LOC: ERS 08:32 → 2NO 10:15 → T4-B 04-29 21:00
PROVIDERS: ADMIT Internal Medicine; ATTEND Internal Medicine
PROC: 3E033XZ Introduction of Vasopressor into Peripheral Vein, Percutaneous Approach (ICD-10-PCS; 2021-04-23)
PROC: 0DH67UZ Insertion of Feeding Device into Stomach, Via Natural or Artificial Opening (ICD-10-PCS; principal; 2021-04-27)
PROC: 009U3ZX Drainage of Spinal Canal, Percutaneous Approach, Diagnostic (ICD-10-PCS; 2021-04-27)
PROC: B01B1ZZ Fluoroscopy of Spinal Cord using Low Osmolar Contrast (ICD-10-PCS; 2021-04-27)
PROC: 0DH63UZ Insertion of Feeding Device into Stomach, Percutaneous Approach (ICD-10-PCS; 2021-05-01)
DX: A41.9 Sepsis, unspecified organism (principal); G93.41 Metabolic encephalopathy; Z51.5 Encounter for palliative care; R65.21 Severe sepsis with septic shock; J18.9 Pneumonia, unspecified organism; C64.9 Malignant neoplasm of unspecified kidney, except renal pelvis; E44.0 Moderate protein-calorie malnutrition; E87.1 Hypo-osmolality and hyponatremia; E27.40 Unspecified adrenocortical insufficiency; C79.31 Secondary malignant neoplasm of brain; C78.00 Secondary malignant neoplasm of unspecified lung; E03.9 Hypothyroidism, unspecified; H35.30 Unspecified macular degeneration; D63.8 Anemia in other chronic diseases classified elsewhere; E86.0 Dehydration; E86.9 Volume depletion, unspecified; E87.6 Hypokalemia; R62.7 Adult failure to thrive; R13.12 Dysphagia, oropharyngeal phase; R73.9 Hyperglycemia, unspecified; T38.0X5A Adverse effect of glucocorticoids and synthetic analogues, initial encounter; Z92.21 Personal history of antineoplastic chemotherapy; Z86.16 Personal history of COVID-19; Z88.0 Allergy status to penicillin; Z88.2 Allergy status to sulfonamides; Z88.8 Allergy status to other drugs, medicaments and biological substances; Z79.890 Hormone replacement therapy; Z79.899 Other long term (current) drug therapy; Z68.24 Body mass index [BMI] 24.0-24.9, adult; Z90.5 Acquired absence of kidney; Z78.1 Physical restraint status
CPT/HCPCS: 0240U; 36415; 36416; 51701; 62270; 70450; 70551; 70552; 71045; 74018; 80048; 80053; 80202; 81003; 81015; 82140; 82533; 82607; 82746; 82945; 83605; 83735; 83880; 84145; 84157; 84439; 84443; 84481; 85025; 86140; 86480; 87040; 87070; 87086; 87205; 87449; 87529; 87798; 87899; 89051; 93005; 95712; 95819; 95957; 96365; 96367; C9113; J0692; J1100; J1265; J1650; J2060; J2250; J2405; J3370; J3480; J3490; J7030; J7050; J7120; Q0167; U0002; U0003; U0005

== ENCOUNTER 2021-07-19 20:44 | Observation (INO) | payer OTHER ==
[2021-07-19 22:56] LABS: #Basophils 0.1 thou/uL (0.0-0.2); #Eosinphils 0.1 thou/uL (0.0-0.7); #Lymphocytes 0.7 thou/uL (1.20-3.40); #Monocytes 0.6 thou/uL (0.11-0.59); #Neutrophils 5.5 thou/uL (1.40-6.50); %Basophils 0.8 % (0.0-1.0); %Eosinophils 0.9 % (0.0-10.0); %Lymphocytes 9.6 % (21.0-51.0); %Monocytes 8.4 % (0.0-10.0); %Neutrophils 80.4 % (42.0-75.0); Hemoglobin 11.7 g/dL (12.0-16.0); Mean Corpuscular HGB CONC 32.6 g/dL (32.0-36.0); Mean Corpuscular Hemoglobin 30.9 pg (27.0-31.0); Mean Corpuscular Volume 94.8 fL (78.0-98.0); Mean Platelet Volume 6.5 fL (7.4-10.4); Platelet Count 244 thou/uL (130-400); Red Blood Cell (RBC) Count 3.78 mill/uL (4.20-5.40); White Blood Cell (WBC) Count 6.9 thou/uL (4.8-10.8)
[2021-07-19] MEDS ORDERED: Ondansetron PF 4 MG/2 ML Vial ONE (23:23)
[2021-07-20 00:04] LABS: ALT (SGPT) 37 U/L (8-55); AST (SGOT) 28 U/L (5-34); Alkaline Phosphatase 95 U/L (40-110); Anion Gap 14 mmol/L (10-20); BUN (Urea Nitrogen) 14 mg/dL (9.8-20.1); Bilirubin, Total 0.6 mg/dL (0.2-1.2); CK (CPK) 67 U/L (29-168); Calc. Creatinine Clearance 0 mL/min (70-130); Calcium 9.4 mg/dL (7.8-10.44); Carbon Dioxide 15 mmol/L (23-31); Chloride 110 mmol/L (98-107); Globulin 3.2 g/dL (2.4-3.5); Glucose 103 mg/dL (80-115); Lipase 44 U/L (8-78); Magnesium 2.3 mg/dL (1.6-2.6); Protein, Total 7.2 g/dL (5.8-8.1); Sodium 136 mmol/L (136-145)
[2021-07-20] MEDS ORDERED: Ondansetron ODT 4 MG TAB ONE (00:09)
[2021-07-20 00:12] LABS: Potassium 2.9 mmol/L (3.5-5.1)
[2021-07-20] MEDS ORDERED: Potassium Chloride 20 MEQ in Premix Bag 1 BAG IVPB SCH (02:00)
[2021-07-20 02:02] LABS: Bacteria/HPF None Seen HPF (None Seen); Bilirubin Negative (Negative); Blood, Urine Trace (Negative); Clarity Clear (Clear); Glucose, Urine (Dipstick) Normal (Negative); Ketone, Urine Trace mg/dL (Negative); Leukocyte 25 Leu/uL (Negative); Nitrite Negative (Negative); Protein, Urine (Dipstick) 30 mg/dL (Neg-Trace); Specific Gravity, Urine 1.015 (1.002-1.036); Squamous Epithelial None Seen HPF (0-3); Urobilinogen Normal mg/dL (Less than 2); pH, Urine 6.5 (5.0-9.0)
[2021-07-20] MEDS ORDERED: NS 0.9% w/ 40 MEQ KCL 1,000 ML IV SCH (02:15)
[2021-07-20 04:43] VITALS: BMI 24.7
[2021-07-20] MEDS ORDERED: Acetaminophen 325 MG TAB PO PRN (08:43)
[2021-07-20] MEDS ORDERED: Ondansetron PF 4 MG/2 ML Vial IVP PRN (08:43)
[2021-07-20] MEDS ORDERED: Enoxaparin Sodium 40 MG/0.4 ML SYRINGE SC SCH (08:45)
[2021-07-20] MEDS ORDERED: cefTRIAXone\\ROCEPHIN 1 GM in Sodium Chloride 0.9% 100 ML IVPB SCH (09:00)
[2021-07-20 09:56] LABS: Thyroid Stimulating Hormone 0.3149 uIU/mL (0.35-4.94)
[2021-07-20] MEDS: Sodium Chloride 0.9% 1,000 ML IV SCH ×2 (10:08→18:08)
[2021-07-20] MEDS: Enoxaparin Sodium 40 MG/0.4 ML SYRINGE SC SCH (10:08)
[2021-07-20] MEDS: Aztreonam 1 GM in Sodium Chloride 0.9% 100 ML IVPB SCH ×2 (10:08→20:18)
[2021-07-20 12:36] LABS: Potassium 3.2 mmol/L (3.5-5.1)
[2021-07-20 14:09] LABS: Anion Gap 10 mmol/L (10-20); BUN (Urea Nitrogen) 11 mg/dL (9.8-20.1); Calc. Creatinine Clearance 74 mL/min (70-130); Calcium 8.5 mg/dL (7.8-10.44); Carbon Dioxide 15 mmol/L (23-31); Chloride 115 mmol/L (98-107); Glucose 93 mg/dL (80-115); Potassium 3.3 mmol/L (3.5-5.1); Sodium 137 mmol/L (136-145)
[2021-07-20] MEDS ORDERED: Potassium Chloride 20 MEQ TAB PO SCH (15:30)
[2021-07-21] MEDS: Sodium Chloride 0.9% 1,000 ML IV SCH (00:59)
[2021-07-21] MEDS ORDERED: Loperamide HCl 2 MG CAP PO PRN (06:29)
[2021-07-21] MEDS ORDERED: Bisacodyl 5 MG TAB PO PRN (06:29)
[2021-07-21] MEDS ORDERED: Calcium Carbonate 500 MG ChewTAB PO PRN (06:29)
[2021-07-21] MEDS ORDERED: Hydrocerin (Eucerin) Cream 120 gm Jar TOP PRN (06:29)
[2021-07-21] MEDS ORDERED: Artificial Tear Sol 15 ML BOT EA EYE PRN (06:29)
[2021-07-21] MEDS ORDERED: Cepastat Lozenges 1 LOZ PO PRN (06:29)
[2021-07-21] MEDS ORDERED: Loratadine 10 MG TAB PO PRN (06:29)
[2021-07-21] MEDS ORDERED: GUAIFENESIN SF SOLN 200 MG/10 ML UDCUP PO PRN (06:29)
[2021-07-21] MEDS ORDERED: Senokot S 8.6-50 MG TAB PO PRN (06:29)
[2021-07-21] MEDS ORDERED: HYDROcodone/Acetaminophen 5/325 mg Tablet PO PRN (06:29)
[2021-07-21] MEDS ORDERED: Sodium Chloride 0.65% Nasal 44 ML BOT EA NARE PRN (06:29)
[2021-07-21] MEDS ORDERED: Ondansetron ODT 4 MG TAB PO PRN (06:29)
[2021-07-21] MEDS ORDERED: hydrALAZINE 20 MG/ML VIAL SLOW IVP PRN (06:29)
[2021-07-21] MEDS ORDERED: Potassium Chloride 20 MEQ TAB PO SCH (06:30)
[2021-07-21] MEDS: Enoxaparin Sodium 40 MG/0.4 ML SYRINGE SC SCH (07:27)
[2021-07-21] MEDS: Aztreonam 1 GM in Sodium Chloride 0.9% 100 ML IVPB SCH (07:31)
[2021-07-21] MEDS: NS 0.9% w/ 20 MEQ KCL 1,000 ML/1,000 ML BAG IV SCH ×2 (07:31→14:03)
[2021-07-21 08:38] LABS: Phosphorus 1.6 mg/dL (2.3-4.7)
[2021-07-21] MEDS ORDERED: Levothyroxine Sodium 88 MCG TAB PO SCH (09:00)
[2021-07-21] MEDS ORDERED: Famotidine 20 MG TAB PO SCH (09:00)
[2021-07-21] MEDS ORDERED: Zinc Sulfate 220 MG CAP PO SCH (09:00)
[2021-07-21] MEDS ORDERED: Trospium 20 MG TAB PO SCH (09:00)
[2021-07-21] MEDS ORDERED: Folic Acid 1 MG TAB PO SCH (09:00)
[2021-07-21] MEDS ORDERED: Potassium Phosphate 15 MMOL in Sodium Chloride 0.9% 250 ML 250 ML IVPB SCH (09:15)
[2021-07-21] MEDS ORDERED: Magnevist 469MG/ML 20 ML VIAL ONE (12:26)
[2021-07-21 15:37] VITALS: BP 114/77; TEMP 98.1
== END 2021-07-21 17:25 | disposition home or self-care (01) ==
LOC: ERS 20:44 → 2NO 07-20 01:06 → ONC 07-20 15:13
PROVIDERS: ADMIT Internal Medicine; ATTEND Internal Medicine
DX: G93.41 Metabolic encephalopathy (principal); E86.0 Dehydration; E87.6 Hypokalemia; E83.39 Other disorders of phosphorus metabolism; E03.9 Hypothyroidism, unspecified; C64.9 Malignant neoplasm of unspecified kidney, except renal pelvis; C78.00 Secondary malignant neoplasm of unspecified lung; C79.31 Secondary malignant neoplasm of brain; D63.0 Anemia in neoplastic disease; E44.0 Moderate protein-calorie malnutrition; Z68.24 Body mass index [BMI] 24.0-24.9, adult; Z86.16 Personal history of COVID-19; Z79.899 Other long term (current) drug therapy; Z88.0 Allergy status to penicillin; Z88.1 Allergy status to other antibiotic agents; Z88.2 Allergy status to sulfonamides; Z90.5 Acquired absence of kidney
CPT/HCPCS: 36415; 70450; 70553; 71045; 80048; 80053; 81003; 81015; 82140; 82550; 83605; 83690; 83735; 84100; 84439; 84443; 84481; 84484; 85025; 93005; 96365; 96372; 96375; 96376; A9579; G0378; J1650; J2405; J3480; J3490; J7050; Q0162

== ENCOUNTER 2021-08-04 07:49 | Outpatient (CLI) | payer OTHER | END 2021-08-04 07:50 | disposition home or self-care (01) | LOC: BICMAMMO 07:49 | PROVIDERS: ATTEND Family Medicine | DX: Z12.31 Encounter for screening mammogram for malignant neoplasm of breast (principal); Z85.528 Personal history of other malignant neoplasm of kidney; Z80.3 Family history of malignant neoplasm of breast | CPT/HCPCS: 77063; 77067 ==

== ENCOUNTER 2021-08-18 16:49 | Observation (INO) | payer OTHER ==
[2021-08-18 17:18] LABS: #Eosinphils 0.1 thou/uL (0.0-0.7); #Lymphocytes 0.6 thou/uL (1.20-3.40); #Monocytes 0.4 thou/uL (0.11-0.59); #Neutrophils 4.2 thou/uL (1.40-6.50); %Basophils 0.8 % (0.0-1.0); %Lymphocytes 10.5 % (21.0-51.0); %Monocytes 7.2 % (0.0-10.0); %Neutrophils 80.5 % (42.0-75.0); Hemoglobin 12.3 g/dL (12.0-16.0); Mean Corpuscular HGB CONC 33.4 g/dL (32.0-36.0); Mean Corpuscular Volume 95.8 fL (78.0-98.0); Mean Platelet Volume 6.7 fL (7.4-10.4); Platelet Count 191 thou/uL (130-400); RBC Distribution Width 12.7 % (11.5-14.5); Red Blood Cell (RBC) Count 3.85 mill/uL (4.20-5.40); White Blood Cell (WBC) Count 5.2 thou/uL (4.8-10.8)
[2021-08-18 18:01] LABS: Chloride 108 mmol/L (98-107); Potassium 3.7 mmol/L (3.5-5.1); Sodium 135 mmol/L (136-145)
[2021-08-18 18:21] LABS: Albumin 3.8 g/dL (3.4-4.8)
[2021-08-18 18:23] LABS: Calcium 8.9 mg/dL (7.8-10.44)
[2021-08-18 18:24] LABS: Globulin 2.9 g/dL (2.4-3.5); Glucose 98 mg/dL (80-115); Protein, Total 6.7 g/dL (5.8-8.1)
[2021-08-18 18:25] LABS: Anion Gap 15 mmol/L (10-20); Carbon Dioxide 16 mmol/L (23-31)
[2021-08-18 18:26] LABS: Bilirubin, Total 0.5 mg/dL (0.2-1.2)
[2021-08-18 18:27] LABS: Alkaline Phosphatase 87 U/L (40-110); Calc. Creatinine Clearance 0 mL/min (70-130)
[2021-08-18 18:28] LABS: BUN (Urea Nitrogen) 13 mg/dL (9.8-20.1)
[2021-08-18 18:29] LABS: ALT (SGPT) 38 U/L (8-55); AST (SGOT) 32 U/L (5-34)
[2021-08-18 18:30] LABS: CK (CPK) 63 U/L (29-168)
[2021-08-18 18:54] LABS: Bacteria/HPF 1+ HPF (None Seen); Bilirubin Negative (Negative); Blood, Urine 1+ (Negative); Clarity Clear (Clear); Glucose, Urine (Dipstick) Normal (Negative); Ketone, Urine Negative (Negative); Leukocyte 500 Leu/uL (Negative); Nitrite Negative (Negative); Protein, Urine (Dipstick) 20 mg/dL (Neg-Trace); RBC/HPF 21-50 HPF (0-3); Specific Gravity, Urine 1.016 (1.002-1.036); Squamous Epithelial 0-3 HPF (0-3); Urobilinogen Normal mg/dL (Less than 2)
[2021-08-19] MEDS ORDERED: Acetaminophen 325 MG TAB PO PRN (01:41)
[2021-08-19] MEDS ORDERED: Ondansetron PF 4 MG/2 ML Vial IVP PRN (01:41)
[2021-08-19] MEDS ORDERED: Melatonin 3 MG TAB PO PRN (01:42)
[2021-08-19] MEDS: Sodium Chloride 0.9% 1,000 ML IV SCH ×2 (01:59→16:01)
[2021-08-19 07:08] LABS: #Eosinphils 0.2 thou/uL (0.0-0.7); #Lymphocytes 0.8 thou/uL (1.20-3.40); #Monocytes 0.4 thou/uL (0.11-0.59); #Neutrophils 2.3 thou/uL (1.40-6.50); %Basophils 0.7 % (0.0-1.0); %Eosinophils 4.4 % (0.0-10.0); %Lymphocytes 21.6 % (21.0-51.0); %Monocytes 11.9 % (0.0-10.0); %Neutrophils 61.4 % (42.0-75.0); Hemoglobin 10.7 g/dL (12.0-16.0); Mean Corpuscular HGB CONC 32.5 g/dL (32.0-36.0); Mean Corpuscular Hemoglobin 31.6 pg (27.0-31.0); Mean Corpuscular Volume 97.2 fL (78.0-98.0); Mean Platelet Volume 6.8 fL (7.4-10.4); Platelet Count 155 thou/uL (130-400); RBC Distribution Width 12.6 % (11.5-14.5); Red Blood Cell (RBC) Count 3.39 mill/uL (4.20-5.40); White Blood Cell (WBC) Count 3.7 thou/uL (4.8-10.8)
[2021-08-19 07:36] LABS: Anion Gap 10 mmol/L (10-20); BUN (Urea Nitrogen) 11 mg/dL (9.8-20.1); Calc. Creatinine Clearance 0 mL/min (70-130); Calcium 8.7 mg/dL (7.8-10.44); Carbon Dioxide 20 mmol/L (23-31); Chloride 109 mmol/L (98-107); Glucose 85 mg/dL (80-115); Sodium 135 mmol/L (136-145)
[2021-08-19] MEDS ORDERED: Enoxaparin Sodium 40 MG/0.4 ML SYRINGE ONE (08:29)
[2021-08-19] MEDS: Enoxaparin Sodium 40 MG/0.4 ML SYRINGE SC SCH (08:30)
[2021-08-19] MEDS ORDERED: Levothyroxine Sodium 88 MCG TAB PO SCH (10:15)
[2021-08-19 10:47] LABS: Free T4 (Free Thyroxine) 0.93 ng/dL (0.70-1.48)
[2021-08-19 14:44] VITALS: BMI 25.0
[2021-08-19 18:23] LABS: SARS-CoV-2 PCR by NAA Not Detected (NotDetected)
[2021-08-19] MEDS: Trospium 20 MG TAB PO SCH (19:47)
[2021-08-19] MEDS ORDERED: Calcium Carbonate 500 MG ChewTAB PO PRN (22:19)
[2021-08-20 05:22] LABS: #Eosinphils 0.2 thou/uL (0.0-0.7); #Lymphocytes 0.7 thou/uL (1.20-3.40); #Monocytes 0.4 thou/uL (0.11-0.59); #Neutrophils 1.8 thou/uL (1.40-6.50); %Basophils 0.8 % (0.0-1.0); %Eosinophils 7.8 % (0.0-10.0); %Lymphocytes 21.2 % (21.0-51.0); %Monocytes 13.5 % (0.0-10.0); %Neutrophils 56.7 % (42.0-75.0); Hemoglobin 10.2 g/dL (12.0-16.0); Mean Corpuscular HGB CONC 33.7 g/dL (32.0-36.0); Mean Corpuscular Hemoglobin 32.4 pg (27.0-31.0); Mean Corpuscular Volume 96.1 fL (78.0-98.0); Mean Platelet Volume 6.6 fL (7.4-10.4); Platelet Count 172 thou/uL (130-400); RBC Distribution Width 12.6 % (11.5-14.5); Red Blood Cell (RBC) Count 3.15 mill/uL (4.20-5.40); White Blood Cell (WBC) Count 3.1 thou/uL (4.8-10.8)
[2021-08-20 05:39] LABS: Anion Gap 8 mmol/L (10-20); BUN (Urea Nitrogen) 12 mg/dL (9.8-20.1); Calc. Creatinine Clearance 65 mL/min (70-130); Calcium 9.3 mg/dL (7.8-10.44); Carbon Dioxide 25 mmol/L (23-31); Chloride 108 mmol/L (98-107); Glucose 85 mg/dL (80-115); Potassium 4.2 mmol/L (3.5-5.1); Sodium 137 mmol/L (136-145)
[2021-08-20] MEDS ORDERED: Levothyroxine Sodium 88 MCG TAB PO SCH (06:00)
[2021-08-20] MEDS: Enoxaparin Sodium 40 MG/0.4 ML SYRINGE SC SCH (08:58)
[2021-08-20] MEDS: Trospium 20 MG TAB PO SCH (08:59)
[2021-08-20] MEDS ORDERED: Mirtazapine 15 MG TAB PO SCH (09:00)
[2021-08-20] MEDS ORDERED: Linaclotide [Linzess] 290 MCG Capsule PO SCH ×2 (09:00)
[2021-08-20] MEDS ORDERED: Vit A,C & E/Lutein/Minerals Tablet PO SCH (09:00)
[2021-08-20] MEDS ORDERED: Senokot S 8.6-50 MG TAB PO SCH (09:00)
[2021-08-20 10:29] VITALS: TEMP 97.9
[2021-08-20 13:02] VITALS: BP 103/79
== END 2021-08-20 14:15 | disposition home or self-care (01) ==
LOC: ERS 16:49 → 2SW 20:34 → ERHOLD 20:53 → 2SW 08-19 13:53
PROVIDERS: ADMIT Internal Medicine; ATTEND Internal Medicine
DX: I95.9 Hypotension, unspecified (principal); R53.1 Weakness; N39.0 Urinary tract infection, site not specified; C64.9 Malignant neoplasm of unspecified kidney, except renal pelvis; C78.00 Secondary malignant neoplasm of unspecified lung; C79.31 Secondary malignant neoplasm of brain; E03.9 Hypothyroidism, unspecified; E87.1 Hypo-osmolality and hyponatremia; E87.6 Hypokalemia; Z79.899 Other long term (current) drug therapy; Z88.0 Allergy status to penicillin; Z88.1 Allergy status to other antibiotic agents; Z88.2 Allergy status to sulfonamides; Z20.822 Contact with and (suspected) exposure to COVID-19; W19.XXXA Unspecified fall, initial encounter
CPT/HCPCS: 36415; 70450; 71045; 80048; 80053; 81003; 81015; 82533; 82550; 83605; 84439; 84443; 84481; 84484; 85025; 87040; 87086; 93005; 96372; 96375; G0378; J1650; J1956; J7050; U0003; U0005

== ENCOUNTER 2021-11-12 09:34 | Inpatient (IN) | payer MEDICARE, OTHER ==
[2021-11-12 09:59] LABS: #Eosinphils 0.2 thou/uL (0.0-0.7); #Lymphocytes 1.2 thou/uL (1.20-3.40); #Monocytes 0.7 thou/uL (0.11-0.59); #Neutrophils 4.1 thou/uL (1.40-6.50); %Basophils 0.7 % (0.0-1.0); %Eosinophils 3.3 % (0.0-10.0); %Lymphocytes 19.6 % (21.0-51.0); %Neutrophils 65.4 % (42.0-75.0); Hemoglobin 9.6 g/dL (12.0-16.0); Mean Corpuscular HGB CONC 31.1 g/dL (32.0-36.0); Mean Corpuscular Hemoglobin 30.5 pg (27.0-31.0); Mean Corpuscular Volume 98.3 fL (78.0-98.0); Mean Platelet Volume 6.3 fL (7.4-10.4); Platelet Count 246 thou/uL (130-400); RBC Distribution Width 13.3 % (11.5-14.5); Red Blood Cell (RBC) Count 3.15 mill/uL (4.20-5.40); White Blood Cell (WBC) Count 6.3 thou/uL (4.8-10.8)
[2021-11-12] MEDS ORDERED: cefTRIAXone\\ROCEPHIN 2 GM VIAL ONE (10:12)
[2021-11-12 10:22] LABS: ALT (SGPT) 35 U/L (8-55); AST (SGOT) 103 U/L (5-34); Alkaline Phosphatase 65 U/L (40-110); Anion Gap 9 mmol/L (10-20); BUN (Urea Nitrogen) 15 mg/dL (9.8-20.1); Bilirubin, Total 0.5 mg/dL (0.2-1.2); Calc. Creatinine Clearance 0 mL/min (70-130); Calcium 8.3 mg/dL (7.8-10.44); Carbon Dioxide 19 mmol/L (23-31); Chloride 104 mmol/L (98-107); Globulin 2.4 g/dL (2.4-3.5); Glucose 93 mg/dL (80-115); Potassium 4.1 mmol/L (3.5-5.1); Protein, Total 5.4 g/dL (5.8-8.1); Sodium 128 mmol/L (136-145)
[2021-11-12 13:15] LABS: Bilirubin Negative (Negative); Blood, Urine 1+ (Negative); Clarity Clear (Clear); Glucose, Urine (Dipstick) Normal (Negative); Ketone, Urine Negative (Negative); Leukocyte Negative Leu/uL (Negative); Nitrite Negative (Negative); Protein, Urine (Dipstick) 10 mg/dL (Neg-Trace); Specific Gravity, Urine 1.014 (1.002-1.036); Squamous Epithelial None Seen HPF (0-3); Urobilinogen Normal mg/dL (Less than 2); WBC/HPF 0-3 HPF (0-3)
[2021-11-12 13:17] LABS: Bacteria/HPF 1+ HPF (None Seen)
[2021-11-12] MEDS ORDERED: Bisacodyl 5 MG TAB PO PRN (16:34)
[2021-11-12] MEDS ORDERED: Ondansetron PF 4 MG/2 ML Vial IVP PRN (16:34)
[2021-11-12] MEDS: Sodium Chloride 0.9% 1,000 ML IV SCH (17:57)
[2021-11-12] MEDS: Acetaminophen 325 MG TAB PO PRN (20:19)
[2021-11-12] MEDS: Melatonin 3 MG TAB PO PRN (20:22)
[2021-11-12] MEDS: Trospium 20 MG TAB PO SCH (20:22)
[2021-11-13] MEDS: Levothyroxine Sodium 88 MCG TAB PO SCH (03:59)
[2021-11-13 04:35] LABS: #Eosinphils 0.2 thou/uL (0.0-0.7); #Lymphocytes 0.9 thou/uL (1.20-3.40); #Monocytes 0.6 thou/uL (0.11-0.59); #Neutrophils 2.4 thou/uL (1.40-6.50); %Basophils 0.6 % (0.0-1.0); %Eosinophils 5.9 % (0.0-10.0); %Lymphocytes 21.7 % (21.0-51.0); %Monocytes 13.5 % (0.0-10.0); %Neutrophils 58.3 % (42.0-75.0); Hemoglobin 9.6 g/dL (12.0-16.0); Mean Corpuscular HGB CONC 31.8 g/dL (32.0-36.0); Mean Corpuscular Hemoglobin 31.3 pg (27.0-31.0); Mean Corpuscular Volume 98.5 fL (78.0-98.0); Mean Platelet Volume 6.5 fL (7.4-10.4); Platelet Count 199 thou/uL (130-400); Red Blood Cell (RBC) Count 3.05 mill/uL (4.20-5.40); White Blood Cell (WBC) Count 4.1 thou/uL (4.8-10.8)
[2021-11-13 04:49] LABS: Anion Gap 9 mmol/L (10-20); BUN (Urea Nitrogen) 11 mg/dL (9.8-20.1); Calc. Creatinine Clearance 70 mL/min (70-130); Calcium 8.3 mg/dL (7.8-10.44); Carbon Dioxide 17 mmol/L (23-31); Chloride 106 mmol/L (98-107); Glucose 81 mg/dL (80-115); Potassium 3.8 mmol/L (3.5-5.1); Sodium 128 mmol/L (136-145)
[2021-11-13] MEDS: Sodium Chloride 0.9% 1,000 ML IV SCH ×2 (07:55→20:43)
[2021-11-13] MEDS: Enoxaparin Sodium 40 MG/0.4 ML SYRINGE SC SCH (08:54)
[2021-11-13] MEDS: Trospium 20 MG TAB PO SCH ×2 (08:54→20:44)
[2021-11-13] MEDS: cefTRIAXone\\ROCEPHIN 1 GM in Sodium Chloride 0.9% 100 ML IVPB SCH (10:31)
[2021-11-13] MEDS ORDERED: Hydrocerin (Eucerin) Cream 120 gm Jar TOP PRN (11:24)
[2021-11-13] MEDS ORDERED: hydrALAZINE 20 MG/ML VIAL SLOW IVP PRN (11:24)
[2021-11-13] MEDS ORDERED: Loperamide HCl 2 MG CAP PO PRN (11:24)
[2021-11-13] MEDS ORDERED: GUAIFENESIN SF SOLN 200 MG/10 ML UDCUP PO PRN (11:24)
[2021-11-13] MEDS ORDERED: Artificial Tear Sol 15 ML BOT EA EYE PRN (11:24)
[2021-11-13] MEDS ORDERED: Sodium Chloride 0.65% Nasal 44 ML BOT EA NARE PRN (11:24)
[2021-11-13] MEDS ORDERED: Calcium Carbonate 500 MG ChewTAB PO PRN (11:24)
[2021-11-13] MEDS ORDERED: Ondansetron ODT 4 MG TAB PO PRN (11:24)
[2021-11-13] MEDS: HYDROcodone/Acetaminophen 5/325 mg Tablet PO PRN (11:47)
[2021-11-13 15:32] LABS: SARS-CoV-2 PCR by NAA Not Detected (NotDetected)
[2021-11-13] MEDS: Sodium Chloride 1 GM TAB PO SCH (20:44)
[2021-11-13] MEDS: Melatonin 3 MG TAB PO PRN (20:44)
[2021-11-14] MEDS: Levothyroxine Sodium 88 MCG TAB PO SCH (06:20)
[2021-11-14] MEDS: Enoxaparin Sodium 40 MG/0.4 ML SYRINGE SC SCH (09:33)
[2021-11-14] MEDS: Trospium 20 MG TAB PO SCH ×2 (09:33→19:59)
[2021-11-14] MEDS: cefTRIAXone\\ROCEPHIN 1 GM in Sodium Chloride 0.9% 100 ML IVPB SCH (09:33)
[2021-11-14] MEDS: Sodium Chloride 1 GM TAB PO SCH ×2 (09:33→19:59)
[2021-11-14] MEDS: Sodium Chloride 0.9% 1,000 ML IV SCH (11:59)
[2021-11-14] MEDS: HYDROcodone/Acetaminophen 5/325 mg Tablet PO PRN (17:41)
[2021-11-14] MEDS: Melatonin 3 MG TAB PO PRN (22:14)
[2021-11-15 04:36] LABS: #Basophils 0.1 thou/uL (0.0-0.2); #Eosinphils 0.2 thou/uL (0.0-0.7); #Lymphocytes 1.4 thou/uL (1.20-3.40); #Monocytes 0.4 thou/uL (0.11-0.59); #Neutrophils 1.4 thou/uL (1.40-6.50); %Basophils 1.5 % (0.0-1.0); %Eosinophils 6.4 % (0.0-10.0); %Lymphocytes 40.1 % (21.0-51.0); %Monocytes 11.1 % (0.0-10.0); %Neutrophils 40.9 % (42.0-75.0); Hemoglobin 9.1 g/dL (12.0-16.0); Mean Corpuscular HGB CONC 32.5 g/dL (32.0-36.0); Mean Corpuscular Hemoglobin 31.9 pg (27.0-31.0); Mean Corpuscular Volume 98.2 fL (78.0-98.0); Mean Platelet Volume 6.4 fL (7.4-10.4); Platelet Count 223 thou/uL (130-400); RBC Distribution Width 13.2 % (11.5-14.5); Red Blood Cell (RBC) Count 2.87 mill/uL (4.20-5.40); White Blood Cell (WBC) Count 3.5 thou/uL (4.8-10.8)
[2021-11-15 05:09] LABS: ALT (SGPT) 31 U/L (8-55); AST (SGOT) 61 U/L (5-34); Alkaline Phosphatase 63 U/L (40-110); Anion Gap 7 mmol/L (10-20); BUN (Urea Nitrogen) 8 mg/dL (9.8-20.1); Bilirubin, Total 0.3 mg/dL (0.2-1.2); Calc. Creatinine Clearance 88 mL/min (70-130); Calcium 8.6 mg/dL (7.8-10.44); Carbon Dioxide 23 mmol/L (23-31); Chloride 109 mmol/L (98-107); Globulin 2.2 g/dL (2.4-3.5); Glucose 88 mg/dL (80-115); Magnesium 2.1 mg/dL (1.6-2.6); Phosphorus 3.2 mg/dL (2.3-4.7); Protein, Total 5.2 g/dL (5.8-8.1); Sodium 135 mmol/L (136-145)
[2021-11-15] MEDS: Levothyroxine Sodium 88 MCG TAB PO SCH (05:40)
[2021-11-15] MEDS: Sodium Chloride 0.9% 1,000 ML IV SCH (07:56)
[2021-11-15] MEDS: cefTRIAXone\\ROCEPHIN 1 GM in Sodium Chloride 0.9% 100 ML IVPB SCH (08:52)
[2021-11-15] MEDS: Enoxaparin Sodium 40 MG/0.4 ML SYRINGE SC SCH (08:52)
[2021-11-15] MEDS: Trospium 20 MG TAB PO SCH ×2 (08:52→21:18)
[2021-11-15] MEDS: Sodium Chloride 1 GM TAB PO SCH ×2 (08:52→21:08)
[2021-11-15] MEDS ORDERED: Megestrol Acetate 40 MG TAB PO SCH (10:30)
[2021-11-15] MEDS ORDERED: Fentanyl 100 MCG/2 ML VIAL ONE (11:40)
[2021-11-15] MEDS ORDERED: PROPOFOL 20 ML ONE (11:40)
[2021-11-15] MEDS ORDERED: Bupivacaine PF 0.5% 30 ML VIAL ONE (11:46)
[2021-11-15] MEDS ORDERED: Lidocaine 1% w/Epinephrine 1:100K 30 ML VIAL ONE (11:46)
[2021-11-15] MEDS ORDERED: Lidocaine 1% PF 5 ML VIAL ONE (12:10)
[2021-11-15] MEDS ORDERED: Promethazine HCl 25 MG/ML VIAL IM PRN (12:29)
[2021-11-15] MEDS ORDERED: Promethazine HCl 25 MG/ML VIAL IVPB PRN (12:29)
[2021-11-15] MEDS ORDERED: Ondansetron HCl/PF 4 MG/2 ML Vial IVP PRN (12:29)
[2021-11-15] MEDS: HYDROcodone/Acetaminophen 5/325 mg Tablet PO PRN ×2 (17:10→21:15)
[2021-11-15] MEDS ORDERED: Morphine 4 MG/ML VIAL SLOW IVP SCH (18:15)
[2021-11-16] MEDS: HYDROcodone/Acetaminophen 5/325 mg Tablet PO PRN (02:52)
[2021-11-16] MEDS: Levothyroxine Sodium 88 MCG TAB PO SCH (06:36)
[2021-11-16] MEDS: Trospium 20 MG TAB PO SCH ×2 (08:45→20:56)
[2021-11-16] MEDS: Enoxaparin Sodium 40 MG/0.4 ML SYRINGE SC SCH (08:46)
[2021-11-16] MEDS: Megestrol Acetate 40 MG TAB PO SCH (08:46)
[2021-11-16] MEDS: cefTRIAXone\\ROCEPHIN 1 GM in Sodium Chloride 0.9% 100 ML IVPB SCH (08:46)
[2021-11-16] MEDS: Sodium Chloride 1 GM TAB PO SCH ×2 (08:46→20:56)
[2021-11-16] MEDS ORDERED: OLANZapine 10 MG VIAL IM SCH (20:30)
[2021-11-16] MEDS ORDERED: Sterile Water 10 ML VIAL FS PRN (20:30)
[2021-11-16] MEDS: Melatonin 3 MG TAB PO PRN (20:56)
[2021-11-17] MEDS: Levothyroxine Sodium 88 MCG TAB PO SCH (05:19)
[2021-11-17] MEDS: Megestrol Acetate 40 MG TAB PO SCH (07:56)
[2021-11-17] MEDS: Sodium Chloride 1 GM TAB PO SCH ×2 (07:56→22:08)
[2021-11-17] MEDS: Trospium 20 MG TAB PO SCH ×2 (07:56→22:08)
[2021-11-17] MEDS: Enoxaparin Sodium 40 MG/0.4 ML SYRINGE SC SCH (07:56)
[2021-11-17] MEDS: cefTRIAXone\\ROCEPHIN 1 GM in Sodium Chloride 0.9% 100 ML IVPB SCH (08:03)
[2021-11-17] MEDS: Lactated Ringer's 1,000 ML IV SCH (18:38)
[2021-11-17] MEDS: Melatonin 3 MG TAB PO PRN (22:08)
[2021-11-18] MEDS: diphenhydrAMINE 25 MG CAP PO PRN (01:04)
[2021-11-18] MEDS: Levothyroxine Sodium 88 MCG TAB PO SCH (05:39)
[2021-11-18] MEDS: Lactated Ringer's 1,000 ML IV SCH ×2 (05:47→22:25)
[2021-11-18] MEDS: Megestrol Acetate 40 MG TAB PO SCH (08:14)
[2021-11-18] MEDS: Enoxaparin Sodium 40 MG/0.4 ML SYRINGE SC SCH (08:15)
[2021-11-18] MEDS: Sodium Chloride 1 GM TAB PO SCH ×2 (08:15→22:25)
[2021-11-18] MEDS: Trospium 20 MG TAB PO SCH ×2 (08:15→22:25)
[2021-11-18 08:57] LABS: Free T4 (Free Thyroxine) 0.84 ng/dL (0.70-1.48); Thyroid Stimulating Hormone 0.4269 uIU/mL (0.35-4.94)
[2021-11-18] MEDS: cefTRIAXone\\ROCEPHIN 1 GM in Sodium Chloride 0.9% 100 ML IVPB SCH (11:04)
[2021-11-18] MEDS: Melatonin 3 MG TAB PO PRN (22:25)
[2021-11-19] MEDS: Levothyroxine Sodium 88 MCG TAB PO SCH (05:24)
[2021-11-19] MEDS: Megestrol Acetate 40 MG TAB PO SCH (08:01)
[2021-11-19] MEDS: Trospium 20 MG TAB PO SCH ×2 (08:01→20:40)
[2021-11-19] MEDS: Sodium Chloride 1 GM TAB PO SCH ×2 (08:02→20:40)
[2021-11-19] MEDS: Enoxaparin Sodium 40 MG/0.4 ML SYRINGE SC SCH (08:02)
[2021-11-19] MEDS: cefTRIAXone\\ROCEPHIN 1 GM in Sodium Chloride 0.9% 100 ML IVPB SCH (08:05)
[2021-11-19 08:11] LABS: #Eosinphils 0.2 thou/uL (0.0-0.7); #Lymphocytes 1.3 thou/uL (1.20-3.40); #Monocytes 0.5 thou/uL (0.11-0.59); #Neutrophils 2.3 thou/uL (1.40-6.50); %Basophils 0.6 % (0.0-1.0); %Eosinophils 4.9 % (0.0-10.0); %Lymphocytes 29.6 % (21.0-51.0); %Monocytes 10.5 % (0.0-10.0); %Neutrophils 54.4 % (42.0-75.0); Hemoglobin 9.2 g/dL (12.0-16.0); Mean Corpuscular HGB CONC 32.1 g/dL (32.0-36.0); Mean Corpuscular Hemoglobin 31.7 pg (27.0-31.0); Mean Corpuscular Volume 98.8 fL (78.0-98.0); Mean Platelet Volume 6.3 fL (7.4-10.4); Platelet Count 254 thou/uL (130-400); RBC Distribution Width 13.2 % (11.5-14.5); White Blood Cell (WBC) Count 4.3 thou/uL (4.8-10.8)
[2021-11-19 08:31] LABS: Anion Gap 11 mmol/L (10-20); BUN (Urea Nitrogen) 11 mg/dL (9.8-20.1); Calc. Creatinine Clearance 79 mL/min (70-130); Calcium 8.6 mg/dL (7.8-10.44); Carbon Dioxide 21 mmol/L (23-31); Chloride 105 mmol/L (98-107); Glucose 85 mg/dL (80-115); Potassium 4.1 mmol/L (3.5-5.1); Sodium 133 mmol/L (136-145)
[2021-11-19] MEDS: Lactated Ringer's 1,000 ML IV SCH ×2 (11:58→23:54)
[2021-11-19] MEDS: diphenhydrAMINE 25 MG CAP PO PRN (19:28)
[2021-11-19] MEDS: Melatonin 3 MG TAB PO PRN (20:40)
[2021-11-19 23:50] LABS: SARS-CoV-2 PCR by NAA Not Detected (NotDetected)
[2021-11-20] MEDS: Levothyroxine Sodium 88 MCG TAB PO SCH (05:14)
[2021-11-20] MEDS: Trospium 20 MG TAB PO SCH ×2 (08:43→21:28)
[2021-11-20] MEDS: Megestrol Acetate 40 MG TAB PO SCH (08:43)
[2021-11-20] MEDS: cefTRIAXone\\ROCEPHIN 1 GM in Sodium Chloride 0.9% 100 ML IVPB SCH (08:44)
[2021-11-20] MEDS: Sodium Chloride 1 GM TAB PO SCH ×2 (08:44→21:28)
[2021-11-20] MEDS: Enoxaparin Sodium 40 MG/0.4 ML SYRINGE SC SCH (08:44)
[2021-11-20] MEDS ORDERED: diphenhydrAMINE 50 MG/ML VIAL IVP SCH (09:15)
[2021-11-20] MEDS: HYDROcodone/Acetaminophen 5/325 mg Tablet PO PRN ×2 (14:08→18:24)
[2021-11-20] MEDS: Lactated Ringer's 1,000 ML IV SCH (16:00)
[2021-11-20] MEDS: Dronabinol 2.5 MG CAP PO PRN (21:29)
[2021-11-21] MEDS: diphenhydrAMINE 25 MG CAP PO PRN ×2 (00:31→21:16)
[2021-11-21] MEDS: HYDROcodone/Acetaminophen 5/325 mg Tablet PO PRN (02:00)
[2021-11-21] MEDS: Lactated Ringer's 1,000 ML IV SCH ×2 (03:52→22:35)
[2021-11-21] MEDS: Levothyroxine Sodium 88 MCG TAB PO SCH (05:29)
[2021-11-21 06:11] LABS: #Eosinphils 0.2 thou/uL (0.0-0.7); #Lymphocytes 1.3 thou/uL (1.20-3.40); #Monocytes 0.4 thou/uL (0.11-0.59); #Neutrophils 1.7 thou/uL (1.40-6.50); %Basophils 1.1 % (0.0-1.0); %Eosinophils 6.5 % (0.0-10.0); %Lymphocytes 35.9 % (21.0-51.0); %Monocytes 11.8 % (0.0-10.0); %Neutrophils 44.6 % (42.0-75.0); Hemoglobin 9.4 g/dL (12.0-16.0); Mean Corpuscular HGB CONC 33.2 g/dL (32.0-36.0); Mean Corpuscular Hemoglobin 32.7 pg (27.0-31.0); Mean Corpuscular Volume 98.4 fL (78.0-98.0); Mean Platelet Volume 6.2 fL (7.4-10.4); Platelet Count 259 thou/uL (130-400); Red Blood Cell (RBC) Count 2.88 mill/uL (4.20-5.40); White Blood Cell (WBC) Count 3.7 thou/uL (4.8-10.8)
[2021-11-21 06:36] LABS: Anion Gap 11 mmol/L (10-20); BUN (Urea Nitrogen) 10 mg/dL (9.8-20.1); Calc. Creatinine Clearance 82 mL/min (70-130); Calcium 8.9 mg/dL (7.8-10.44); Carbon Dioxide 24 mmol/L (23-31); Chloride 106 mmol/L (98-107); Glucose 82 mg/dL (80-115); Sodium 137 mmol/L (136-145)
[2021-11-21] MEDS: Enoxaparin Sodium 40 MG/0.4 ML SYRINGE SC SCH (08:18)
[2021-11-21] MEDS: Trospium 20 MG TAB PO SCH ×2 (08:18→21:16)
[2021-11-21] MEDS: Megestrol Acetate 40 MG TAB PO SCH (08:18)
[2021-11-21] MEDS: Sodium Chloride 1 GM TAB PO SCH ×2 (08:18→21:16)
[2021-11-21] MEDS: Dronabinol 2.5 MG CAP PO PRN (21:16)
[2021-11-22] MEDS: Lactated Ringer's 1,000 ML IV SCH ×2 (04:32→12:38)
[2021-11-22] MEDS: Levothyroxine Sodium 88 MCG TAB PO SCH (05:57)
[2021-11-22 07:06] LABS: #Basophils 0.1 thou/uL (0.0-0.2); #Eosinphils 0.3 thou/uL (0.0-0.7); #Lymphocytes 1.2 thou/uL (1.20-3.40); #Monocytes 0.5 thou/uL (0.11-0.59); #Neutrophils 1.6 thou/uL (1.40-6.50); %Basophils 1.5 % (0.0-1.0); %Eosinophils 7.7 % (0.0-10.0); %Lymphocytes 33.1 % (21.0-51.0); %Monocytes 14.4 % (0.0-10.0); %Neutrophils 43.3 % (42.0-75.0); Hemoglobin 8.9 g/dL (12.0-16.0); Mean Corpuscular HGB CONC 32.8 g/dL (32.0-36.0); Mean Corpuscular Hemoglobin 32.2 pg (27.0-31.0); Mean Corpuscular Volume 98.3 fL (78.0-98.0); Mean Platelet Volume 6.5 fL (7.4-10.4); Platelet Count 257 thou/uL (130-400); RBC Distribution Width 13.1 % (11.5-14.5); Red Blood Cell (RBC) Count 2.77 mill/uL (4.20-5.40); White Blood Cell (WBC) Count 3.8 thou/uL (4.8-10.8)
[2021-11-22 07:22] LABS: Anion Gap 9 mmol/L (10-20); BUN (Urea Nitrogen) 11 mg/dL (9.8-20.1); Calc. Creatinine Clearance 84 mL/min (70-130); Calcium 8.8 mg/dL (7.8-10.44); Carbon Dioxide 25 mmol/L (23-31); Chloride 107 mmol/L (98-107); Glucose 84 mg/dL (80-115); Potassium 3.9 mmol/L (3.5-5.1); Sodium 137 mmol/L (136-145)
[2021-11-22] MEDS: Megestrol Acetate 40 MG TAB PO SCH (09:04)
[2021-11-22] MEDS: Sodium Chloride 1 GM TAB PO SCH ×2 (09:04→21:06)
[2021-11-22] MEDS: Enoxaparin Sodium 40 MG/0.4 ML SYRINGE SC SCH (09:05)
[2021-11-22] MEDS: Trospium 20 MG TAB PO SCH ×2 (09:05→21:06)
[2021-11-23] MEDS: Melatonin 3 MG TAB PO PRN (00:07)
[2021-11-23] MEDS: HYDROcodone/Acetaminophen 5/325 mg Tablet PO PRN (03:24)
[2021-11-23 04:27] LABS: #Basophils 0.1 thou/uL (0.0-0.2); #Eosinphils 0.3 thou/uL (0.0-0.7); #Lymphocytes 1.3 thou/uL (1.20-3.40); #Monocytes 0.6 thou/uL (0.11-0.59); #Neutrophils 2.2 thou/uL (1.40-6.50); %Basophils 1.4 % (0.0-1.0); %Eosinophils 7.4 % (0.0-10.0); %Lymphocytes 29.6 % (21.0-51.0); %Monocytes 12.7 % (0.0-10.0); Hemoglobin 8.9 g/dL (12.0-16.0); Mean Corpuscular HGB CONC 33.9 g/dL (32.0-36.0); Mean Corpuscular Hemoglobin 32.9 pg (27.0-31.0); Mean Corpuscular Volume 97.3 fL (78.0-98.0); Mean Platelet Volume 6.7 fL (7.4-10.4); Platelet Count 256 thou/uL (130-400); White Blood Cell (WBC) Count 4.5 thou/uL (4.8-10.8)
[2021-11-23 04:42] LABS: Anion Gap 11 mmol/L (10-20); BUN (Urea Nitrogen) 12 mg/dL (9.8-20.1); Calc. Creatinine Clearance 81 mL/min (70-130); Calcium 8.8 mg/dL (7.8-10.44); Carbon Dioxide 23 mmol/L (23-31); Chloride 103 mmol/L (98-107); Glucose 87 mg/dL (80-115); Potassium 3.9 mmol/L (3.5-5.1); Sodium 133 mmol/L (136-145)
[2021-11-23] MEDS: Lactated Ringer's 1,000 ML IV SCH ×2 (05:12→17:32)
[2021-11-23] MEDS: Levothyroxine Sodium 88 MCG TAB PO SCH (05:15)
[2021-11-23] MEDS: Enoxaparin Sodium 40 MG/0.4 ML SYRINGE SC SCH (09:01)
[2021-11-23] MEDS: Trospium 20 MG TAB PO SCH ×2 (09:01→20:51)
[2021-11-23] MEDS: Megestrol Acetate 40 MG TAB PO SCH (09:01)
[2021-11-23] MEDS: Sodium Chloride 1 GM TAB PO SCH ×2 (09:01→20:51)
[2021-11-23 12:54] VITALS: BMI 24.1
[2021-11-23] MEDS: diphenhydrAMINE 25 MG CAP PO PRN (20:51)
[2021-11-24] MEDS: Levothyroxine Sodium 88 MCG TAB PO SCH (05:43)
[2021-11-24] MEDS: Lactated Ringer's 1,000 ML IV SCH ×2 (05:43→20:06)
[2021-11-24] MEDS: Sodium Chloride 1 GM TAB PO SCH ×2 (08:30→20:08)
[2021-11-24] MEDS: Enoxaparin Sodium 40 MG/0.4 ML SYRINGE SC SCH (08:30)
[2021-11-24] MEDS: Trospium 20 MG TAB PO SCH ×2 (08:30→20:08)
[2021-11-24] MEDS: Megestrol Acetate 40 MG TAB PO SCH (08:30)
[2021-11-24] MEDS: Acetaminophen 325 MG TAB PO PRN (20:08)
[2021-11-24] MEDS: Melatonin 3 MG TAB PO PRN (20:08)
[2021-11-24] MEDS: diphenhydrAMINE 25 MG CAP PO PRN (20:08)
[2021-11-25] MEDS: Levothyroxine Sodium 88 MCG TAB PO SCH (05:26)
[2021-11-25 08:17] VITALS: BP 104/62; TEMP 98.4
[2021-11-25] MEDS: Trospium 20 MG TAB PO SCH (08:23)
[2021-11-25] MEDS: Megestrol Acetate 40 MG TAB PO SCH (08:23)
[2021-11-25] MEDS: Enoxaparin Sodium 40 MG/0.4 ML SYRINGE SC SCH (08:23)
[2021-11-25] MEDS: Sodium Chloride 1 GM TAB PO SCH (08:23)
[2021-11-25] MEDS: Acetaminophen 325 MG TAB PO PRN (12:55)
[2021-11-25] MEDS: Lactated Ringer's 1,000 ML IV SCH (12:55)
== END 2021-11-25 15:51 | disposition home health service (06) | DRG 673 ==
LOC: ERS 09:34 → 2NO 14:29 → OBSVTOIN 11-13 11:23 → T4-B 11-16 11:22
PROVIDERS: ADMIT Internal Medicine; ATTEND Internal Medicine
PROC: 0JH60WZ Insertion of Totally Implantable Vascular Access Device into Chest Subcutaneous Tissue and Fascia, Open Approach (ICD-10-PCS; principal; 2021-11-15)
PROC: 02HV33Z Insertion of Infusion Device into Superior Vena Cava, Percutaneous Approach (ICD-10-PCS; 2021-11-15)
PROC: B5181ZA Fluoroscopy of Superior Vena Cava using Low Osmolar Contrast, Guidance (ICD-10-PCS; 2021-11-15)
DX: N39.0 Urinary tract infection, site not specified (principal); Z66 Do not resuscitate; Z20.822 Contact with and (suspected) exposure to COVID-19; G93.41 Metabolic encephalopathy; E87.1 Hypo-osmolality and hyponatremia; E44.0 Moderate protein-calorie malnutrition; C64.9 Malignant neoplasm of unspecified kidney, except renal pelvis; C79.9 Secondary malignant neoplasm of unspecified site; E88.09 Other disorders of plasma-protein metabolism, not elsewhere classified; E03.9 Hypothyroidism, unspecified; H35.30 Unspecified macular degeneration; E86.0 Dehydration; D63.8 Anemia in other chronic diseases classified elsewhere; R13.12 Dysphagia, oropharyngeal phase; R45.1 Restlessness and agitation; Z68.24 Body mass index [BMI] 24.0-24.9, adult; Z88.2 Allergy status to sulfonamides; Z88.1 Allergy status to other antibiotic agents; Z88.0 Allergy status to penicillin; Z91.041 Radiographic dye allergy status; Z79.899 Other long term (current) drug therapy; Z87.440 Personal history of urinary (tract) infections; Z90.5 Acquired absence of kidney
CPT/HCPCS: 36415; 51701; 70450; 71045; 80048; 80053; 81003; 81015; 83605; 83735; 84100; 84439; 84443; 85025; 87040; 87086; 87149; 87804; 96372; 96374; 96376; C1788; G0378; J0696; J1200; J1642; J1650; J2270; J2358; J2405; J2704; J3010; J3490; J7050; J7120; Q0167; S0020; S0179; U0003; U0005

== ENCOUNTER 2023-02-15 23:32 | Emergency (ER) | payer MEDICARE ==
[2023-02-16] MEDS ORDERED: Ondansetron PF 4 MG/2 ML Vial ONE
[2023-02-16 00:27] LABS: #Basophils 0.1 thou/uL (0.0-0.2); #Eosinphils 0.3 thou/uL (0.0-0.7); #Monocytes 0.7 thou/uL (0.11-0.59); #Neutrophils 5.6 thou/uL (1.40-6.50); %Basophils 0.9 % (0.0-1.0); %Eosinophils 3.7 % (0.0-10.0); %Lymphocytes 12.5 % (21.0-51.0); %Monocytes 9.7 % (0.0-10.0); %Neutrophils 72.8 % (42.0-75.0); Hemoglobin 11.4 g/dL (12.0-16.0); Mean Corpuscular HGB CONC 32.4 g/dL (32.0-36.0); Mean Corpuscular Hemoglobin 30.4 pg (27.0-31.0); Mean Corpuscular Volume 93.9 fl (78.0-98.0); Mean Platelet Volume 9.6 fL (7.4-10.4); Platelet Count 207 10x3/uL (130-400); RBC Distribution Width 13.9 % (11.5-14.5); Red Blood Cell (RBC) Count 3.75 mill/uL (4.20-5.40); White Blood Cell (WBC) Count 7.7 10x3/uL (4.8-10.8)
[2023-02-16 00:48] LABS: ALT (SGPT) 15 U/L (8-55); AST (SGOT) 26 U/L (5-34); Alkaline Phosphatase 154 U/L (40-110); Anion Gap 14 mmol/L (10-20); BUN (Urea Nitrogen) 15 mg/dL (9.8-20.1); Bilirubin, Total 0.3 mg/dL (0.2-1.2); CK (CPK) 97 U/L (29-168); Calc. Creatinine Clearance 0 mL/min (70-130); Calcium 9.3 mg/dL (7.8-10.44); Carbon Dioxide 19 mmol/L (23-31); Chloride 107 mmol/L (98-107); Estimated GFR 52; Globulin 2.6 g/dL (2.4-3.5); Glucose 90 mg/dL (80-115); Potassium 4.2 mmol/L (3.5-5.1); Protein, Total 6.6 g/dL (5.8-8.1); Sodium 136 mmol/L (136-145)
== END 2023-02-16 02:49 | disposition home or self-care (01) ==
LOC: ERS 23:32
DX: S01.111A Laceration without foreign body of right eyelid and periocular area, initial encounter (principal); W18.30XA Fall on same level, unspecified, initial encounter; Y93.89 Activity, other specified
CPT/HCPCS: 36415; 70450; 72125; 80053; 82550; 85025; 93005; 96374; J2405